=== PATIENT | male | born 1970 | race Caucasian/White ===

== ENCOUNTER 2018-11-13 13:41 | Emergency (ER) | payer MEDICAID ==
[~2018-11-13] VITALS: Ht 172.7 cm; Wt 65.8 kg
[~2018-11-13 13:41] MED LIST: FAMO40TA7 PO
[2018-11-13 13:44] VITALS: BP_SYST 110
== END 2018-11-13 15:36 | disposition left against medical advice (07) ==
LOC: SED 13:41
DX: L08.9 Local infection of the skin and subcutaneous tissue, unspecified (principal); Z53.21 Procedure and treatment not carried out due to patient leaving prior to being seen by health care provider

== ENCOUNTER 2018-11-25 18:39 | Emergency (ER) | payer MEDICAID ==
[~2018-11-25] VITALS: Ht 170.2 cm; Wt 86.2 kg
[2018-11-25 18:44] VITALS: BP_SYST 117
--- NOTE | 2018-11-25 18:46 | NUR ---
Patient to ER bed 05 to gown for evaluation. Side rails up.
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
[2018-11-25] MEDS ORDERED: ONDANSETRON HCL 4 MG/2 ML VIAL IVP ONE (19:15)
[2018-11-25] MEDS ORDERED: NACL 0.9% 1,000 ML IV ONE (19:15)
--- NOTE | 2018-11-25 19:35 | NUR ---
# 20 gauge angiocath placed to RAC. Use of asceptic technique. Opsite placed over site. Blood return noted. Blood for lab drawn from site. Flushed with 10 cc of normal saline. No evidence of infiltration noted. Patient tolerated well.
--- NOTE | 2018-11-25 19:37 | NUR ---
Shorty barker in ED - 11/25/18 at 1937 by SDEDCJM ANCELMO Weber at bedside examining patient.
--- NOTE | 2018-11-25 19:37 | NUR ---
ER Dr. Weber at bedside examining patient.
[2018-11-25 19:53] LABS: BASOPHILS % (AUTO) 0.7 % (0.0-2.0); EOSINOPHILS % (AUTO) 0.6 % (0.0-4.0); HEMATOCRIT 32.2 % (36-54); HEMOGLOBIN 10.8 g/dL (14.0-18.0); LYMPHOCYTES # (AUTO) 1.6 K/uL (1.0-5.5); LYMPHOCYTES % (AUTO) 27.9 % (20.5-51.5); MEAN CORPUSCULAR HEMOGLOBIN 32 pg (27-31); MEAN CORPUSCULAR HGB CONC 34 % (32-36); MEAN CORPUSCULAR VOLUME 95 fL (79.0-98.0); MONOCYTES # (AUTO) 0.5 K/uL (0.0-1.0); MONOCYTES % (AUTO) 9.5 % (1.7-9.3); NEUTROPHILS # (AUTO) 3.5 K/uL (1.8-7.7); NEUTROPHILS % (AUTO) 61.3 % (40.0-70.0); PLATELET COUNT (AUTO) 60 K/uL (130-430); RED BLOOD CELL COUNT(AUTO) 3.41 MIL/uL (4.2-6.2); RED CELL DISTRIBUTION WIDTH 23.2 % (9.0-15.0); WHITE BLOOD COUNT (AUTO) 5.7 K/uL (4.8-10.8)
[2018-11-25] MEDS ORDERED: DIPHENHYDRAMINE INJ 50 MG/ML VIAL IVP ONE (20:00)
[2018-11-25] MEDS ORDERED: MORPHINE 4 MG/ML INJ. SYRINGE IVP ONE (20:00)
[2018-11-25] MEDS ORDERED: PANTOPRAZOLE SODIUM 40 MG/VIAL (PROTONIX) IVP ONE (20:00)
[2018-11-25 20:01] LABS: CALCIUM 8.3 mg/dL (8.4-11.0); CREATININE 0.72 mg/dL (0.55-1.30); POTASSIUM 3.4 mmol/L (3.5-5.1)
[2018-11-25 20:05] LABS: ALBUMIN 3.2 g/dL (3.4-4.8); TOTAL BILIRUBIN 0.3 mg/dL (0.0-1.0)
--- NOTE | 2018-11-25 20:34 | NUR ---
Patient off unit to CT SCAN abdomen/pelvis with contrast.
--- NOTE | 2018-11-25 21:00 | NUR ---
Patient resting in bed. No complaints/injuries per patient or as noted. WIll continue to monitor.
[2018-11-25] MEDS ORDERED: PROCHLORPERAZINE EDISYLATE 10 MG/2 ML VIAL IVP ONE (21:15)
[2018-11-25] MEDS ORDERED: IOHEXOL 100 ML IV ONE (21:35)
--- NOTE | 2018-11-25 22:53 | NUR ---
ER Dr. Weber at bedside re-examining patient.
[2018-11-25 23:46] VITALS: BP_SYST 122
--- NOTE | 2018-11-25 23:46 | NUR ---
Patient given written and verbal discharge instructions and verbalizes understanding. ER MD discussed with patient the results and treatment provided. Patient in stable condition. ID arm band removed. IV catheter removed intact and dressing applied, no active bleeding. Rx of chlordiazepoxide, tramadol and protonix given. Patient educated on pain management and to follow up with PMD in 2-3 days. Pain Scale 0/10 Given copies of tests performed during visit. Patient is awake, alert and oriented. Ambulatory with steady gait. Refuses offer of prison placement. Given list of available shelters in surrounding areas. Patient presented to facility under the influence of alcohol. Patient is currently ambulatory with steady gait, able to walk unassisted. Positive gag reflex. Alert and oriented. Is not driving self for discharge out of facility.
== END 2018-11-25 23:46 | disposition home or self-care (01) ==
LOC: SED 18:39
DX: K85.90 Acute pancreatitis without necrosis or infection, unspecified (principal); G89.29 Other chronic pain; M79.672 Pain in left foot
CPT/HCPCS: 36415; 74177; 80053; 83690; 85025; 96361; 96374; 96375; 99284; C9113; G0482; J1200; J2270; J2405; J7030; Q9967

== ENCOUNTER 2020-03-26 14:30 | Emergency (ER) | payer MEDICAID, SELFPAY | END 2020-03-26 16:27 | disposition left against medical advice (07) | LOC: SED 14:30 | DX: M54.5 Low back pain (principal) | CPT/HCPCS: 99283 ==

== ENCOUNTER 2020-06-04 10:04 | Emergency (ER) | payer MEDICAID, SELFPAY ==
[~2020-06-04] VITALS: Ht 180.3 cm; Wt 71.7 kg
[2020-06-04 10:15] VITALS: BP_SYST 118
[2020-06-04] MEDS ORDERED: IBUPROFEN 600 MG TABLET PO ONE (10:30)
[2020-06-04 15:51] VITALS: BP_SYST 118
== END 2020-06-04 15:40 | disposition home or self-care (01) ==
LOC: SED 10:04
DX: G89.29 Other chronic pain (principal); M54.5 Low back pain; M79.662 Pain in left lower leg; F10.129 Alcohol abuse with intoxication, unspecified
CPT/HCPCS: 72110; 73590-TC; 93005; 99284

== ENCOUNTER 2020-09-02 13:06 | Inpatient (IN) | payer MEDICAID, SELFPAY ==
[~2020-09-02] VITALS: Ht 170.2 cm; Wt 73.5 kg
[2020-09-02 13:06] VITALS: BP_SYST 114
[2020-09-02] MEDS ORDERED: ACETAMINOPHEN 500 MG TABLET PO ONE (13:15)
[2020-09-02 13:28] LABS: BASOPHILS # (AUTO) 0.1 K/uL (0.0-0.2); BASOPHILS % (AUTO) 2.2 % (0.0-2.0); EOSINOPHILS # (AUTO) 0.1 K/uL (0.0-0.4); EOSINOPHILS % (AUTO) 1.2 % (0.0-4.0); HEMOGLOBIN 10.8 g/dL (14.0-18.0); LYMPHOCYTES # (AUTO) 2.1 K/uL (1.0-5.5); LYMPHOCYTES % (AUTO) 33.7 % (20.5-51.5); MEAN CORPUSCULAR HEMOGLOBIN 34 pg (27-31); MEAN CORPUSCULAR HGB CONC 34 % (32-36); MEAN CORPUSCULAR VOLUME 99 fL (79.0-98.0); MONOCYTES # (AUTO) 0.8 K/uL (0.0-1.0); MONOCYTES % (AUTO) 13.3 % (1.7-9.3); NEUTROPHILS # (AUTO) 3.2 K/uL (1.8-7.7); NEUTROPHILS % (AUTO) 49.6 % (40.0-70.0); PLATELET COUNT (AUTO) 131 K/uL (130-430); RED BLOOD CELL COUNT(AUTO) 3.22 MIL/uL (4.2-6.2); RED CELL DISTRIBUTION WIDTH 13.9 % (9.0-15.0); WHITE BLOOD COUNT (AUTO) 6.4 K/uL (4.8-10.8)
[2020-09-02 13:41] LABS: CALCIUM 7.3 mg/dL (8.4-11.0); CREATININE 0.55 mg/dL (0.55-1.30); POTASSIUM 3.9 mmol/L (3.5-5.1)
[2020-09-02 13:46] LABS: ALBUMIN 2.6 g/dL (3.4-4.8); TOTAL BILIRUBIN 0.4 mg/dL (0.0-1.0)
[2020-09-02 14:15] LABS: BILIRUBIN,URINE NEGATIVE (NEGATIVE); BLOOD, URINE NEGATIVE (NEGATIVE); CLARITY/URINE CLEAR (CLEAR); COLOR,URINE YELLOW (YELLOW); GLUCOSE,URINE NEGATIVE (NEGATIVE); KETONES,URINE NEGATIVE (NEGATIVE); LEUKOCYTE ESTERASE ,URINE NEGATIVE (NEGATIVE); NITRITE, URINE NEGATIVE (NEGATIVE); PROTEIN URINE NEGATIVE (NEGATIVE); UROBILINOGEN,URINE 0.2 (0.2-1.0)
[2020-09-02] MEDS ORDERED: ACETAMINOPHEN 325 MG TABLET PO PRN (17:30)
[2020-09-02] MEDS ORDERED: MORPHINE 2 MG/ML INJ. SYRINGE IVP PRN (17:30)
[2020-09-02] MEDS ORDERED: MORPHINE 4 MG INJ. 4 MG/ML VIAL IVP PRN (17:30)
[2020-09-02] MEDS ORDERED: ALBUTEROL SULFATE 0.083% 2.5 MG/3 ML VIAL.NEB INH PRN (17:30)
[2020-09-02 17:57] VITALS: BP_SYST 108
[2020-09-02 18:56] VITALS: BP_SYST 102
[2020-09-02 20:00] VITALS: BP_SYST 111
[2020-09-02] MEDS: NACL 0.9% 1,000 ML IV SCH (20:51)
[2020-09-02] MEDS: LORazepam 2 MG/ML VIAL IVP PRN (21:54)
[2020-09-02] MEDS ORDERED: BEN50 PO (22:40)
[2020-09-02] MEDS ORDERED: GLUC-119 PO (22:40)
[2020-09-02] MEDS ORDERED: ACET-2634 PO (22:40)
[2020-09-02] MEDS ORDERED: DOXE10CA2 PO (22:40)
[2020-09-02] MEDS ORDERED: FOLIC ACID 1 MG, THIAMINE HCL 100 MG, MAGNESIUM SULFATE 1 GM, MVI 10 ML in NACL 0.9% 1,... IV SCH (23:00)
[2020-09-02] MEDS ORDERED: MULTIVITAMINS TAB 1 TABLET PO ONE (23:15)
[2020-09-03] MEDS: NACL 0.9% 1,000 ML IV SCH ×2 (00:10→03:33)
[2020-09-03 00:24] VITALS: BP_SYST 123
[2020-09-03] MEDS: LORazepam 2 MG/ML VIAL IVP PRN (02:00)
[2020-09-03] MEDS ORDERED: DIPHENHYDRAMINE HCL 50 MG CAPSULE PO ONE (04:15)
[2020-09-03 06:34] LABS: BASOPHILS # (AUTO) 0.1 K/uL (0.0-0.2); BASOPHILS % (AUTO) 2.1 % (0.0-2.0); EOSINOPHILS # (AUTO) 0.1 K/uL (0.0-0.4); EOSINOPHILS % (AUTO) 1.2 % (0.0-4.0); HEMATOCRIT 32.6 % (36-54); HEMOGLOBIN 10.9 g/dL (14.0-18.0); LYMPHOCYTES # (AUTO) 1.2 K/uL (1.0-5.5); LYMPHOCYTES % (AUTO) 26.1 % (20.5-51.5); MEAN CORPUSCULAR HEMOGLOBIN 34 pg (27-31); MEAN CORPUSCULAR HGB CONC 33 % (32-36); MEAN CORPUSCULAR VOLUME 100 fL (79.0-98.0); MONOCYTES # (AUTO) 0.7 K/uL (0.0-1.0); MONOCYTES % (AUTO) 13.9 % (1.7-9.3); NEUTROPHILS # (AUTO) 2.7 K/uL (1.8-7.7); NEUTROPHILS % (AUTO) 56.7 % (40.0-70.0); PLATELET COUNT (AUTO) 123 K/uL (130-430); RED BLOOD CELL COUNT(AUTO) 3.26 MIL/uL (4.2-6.2); WHITE BLOOD COUNT (AUTO) 4.7 K/uL (4.8-10.8)
[2020-09-03 06:55] LABS: ALBUMIN 2.5 g/dL (3.4-4.8); CALCIUM 8.1 mg/dL (8.4-11.0); CREATININE 0.54 mg/dL (0.55-1.30); POTASSIUM 4.3 mmol/L (3.5-5.1); TOTAL BILIRUBIN 0.6 mg/dL (0.0-1.0)
[2020-09-03] MEDS ORDERED: FOLIC ACID 1 MG, THIAMINE HCL 100 MG, MAGNESIUM SULFATE 1 GM, MVI 10 ML in NACL 0.9% 1,... IV SCH (09:00)
== END 2020-09-03 06:05 | disposition left against medical advice (07) | DRG 282 ==
LOC: SED 13:06 → SMU 17:28
PROVIDERS: ADMIT Internal Medicine Hospice and Palliative Medicine; ATTEND Internal Medicine Hospice and Palliative Medicine
DX: K85.90 Acute pancreatitis without necrosis or infection, unspecified (principal); E46 Unspecified protein-calorie malnutrition; E83.51 Hypocalcemia; E87.1 Hypo-osmolality and hyponatremia; D64.9 Anemia, unspecified; K86.1 Other chronic pancreatitis; F10.229 Alcohol dependence with intoxication, unspecified; Z53.21 Procedure and treatment not carried out due to patient leaving prior to being seen by health care provider; Z20.822 Contact with and (suspected) exposure to COVID-19; G89.29 Other chronic pain; Z59.0 Homelessness; Z79.899 Other long term (current) drug therapy; Z68.25 Body mass index [BMI] 25.0-25.9, adult
CPT/HCPCS: 36415; 76376; 80053; 81003; 83690; 85025; 99285; G0482; J2060; J2270; J3411; J3475; J3490; J7030; Q0163

== ENCOUNTER 2021-02-26 20:34 | Emergency (ER) | payer MEDICAID, SELFPAY ==
[~2021-02-26] VITALS: Ht 170.2 cm; Wt 69.4 kg
[~2021-02-26 20:34] MED LIST changes: +ACET-2634 PO; +BEN50 PO; +DOXE10CA2 PO; +GLUC-119 PO
[2021-02-26 20:40] VITALS: BP_SYST 112
[2021-02-26] MEDS: HYDROcodone/ACETAMIN 5-325 MG TAB (NORCO/ VICODIN) PO ONE (21:11)
[2021-02-26 22:24] VITALS: BP_SYST 112
== END 2021-02-26 22:24 | disposition home or self-care (01) ==
LOC: SED 20:34
DX: G89.29 Other chronic pain (principal); M25.561 Pain in right knee; Z79.899 Other long term (current) drug therapy
CPT/HCPCS: 99283

== ENCOUNTER 2021-07-28 21:13 | Emergency (ER) | payer MEDICAID ==
[~2021-07-28] VITALS: Ht 170.2 cm; Wt 79.4 kg
[2021-07-28 21:21] VITALS: BP_SYST 112
--- NOTE | 2021-07-29 06:18 | NUR ---
ER in triage examining patient.
[2021-07-29] MEDS ORDERED: HYDR-3917 PO (06:24)
[2021-07-29] MEDS ORDERED: NAPR-688 PO (06:24)
--- NOTE | 2021-07-29 06:30 | NUR ---
Patient given written and verbal discharge instructions by Dr Williamson and verbalizes understanding. ER MD discussed with patient the care provided. Patient in stable condition. Rx of Adair 5/325 mg and Naproxen given. Patient educated on pain management and to follow up with PMD. Pain Scale 01/0. Opportunity for questions provided and answered by Dr Williamson.
== END 2021-07-29 06:30 | disposition home or self-care (01) ==
LOC: SED 21:13
DX: M79.18 Myalgia, other site (principal); G89.29 Other chronic pain; Z79.899 Other long term (current) drug therapy
CPT/HCPCS: 99283

== ENCOUNTER 2021-08-02 20:52 | Emergency (ER) | payer MEDICAID ==
[~2021-08-02] VITALS: Ht 170.2 cm; Wt 77.1 kg
[~2021-08-02 20:52] MED LIST changes: +HYDR-3917 PO; +NAPR-688 PO
[2021-08-02 21:18] VITALS: BP_SYST 103
--- NOTE | 2021-08-02 22:35 | NUR ---
Dr Dutton evaluating patient in the triage room
[2021-08-02] MEDS ORDERED: KETOROLAC TROMETHAMINE 60 MG/2 ML VIAL IM ONE (22:45)
--- NOTE | 2021-08-02 22:52 | NUR ---
Pt brought by self, A&Ox4, pt presents to ER with bilateral / foot pain, pt denies chest pain or SOB, skin pink and warm, respirations even and unlabored, will cont to monitor.
[2021-08-02] MEDS ORDERED: NAPR-1172 PO (23:51)
[2021-08-03 00:30] VITALS: BP_SYST 109
--- NOTE | 2021-08-03 00:30 | NUR ---
Patient given written and verbal discharge instructions and verbalizes understanding. ER MD discussed with patient the results and treatment provided. Patient in stable condition. ID arm band removed. Rx of Naproxen given. Patient educated on pain management and to follow up with PMD. Pain Scale 4/10. Opportunity for questions provided and answered. Medication side effect fact sheet provided.
== END 2021-08-03 00:30 | disposition home or self-care (01) ==
LOC: SED 20:52
DX: G89.29 Other chronic pain (principal); M79.661 Pain in right lower leg; M79.662 Pain in left lower leg
CPT/HCPCS: 96372; 99283; J1885

== ENCOUNTER 2021-08-18 23:11 | Emergency (ER) | payer MEDICAID ==
[~2021-08-18] VITALS: Ht 170.2 cm; Wt 77.1 kg
[~2021-08-18 23:11] MED LIST changes: +NAPR-1172 PO
[2021-08-18 23:18] VITALS: BP_SYST 122
[2021-08-19] MEDS ORDERED: DIPHENHYDRAMINE HCL 50 MG CAPSULE PO ONE (01:15)
[2021-08-19] MEDS ORDERED: ACETAMINOPHEN 650 MG/20.3 ML UDC PO ONE (01:15)
[2021-08-19] MEDS ORDERED: DIPH28.34 TP (02:39)
[2021-08-19] MEDS ORDERED: ACET-73 PO (02:39)
[2021-08-19 05:28] VITALS: BP_SYST 118
== END 2021-08-19 05:29 | disposition home or self-care (01) ==
LOC: SED 23:11
DX: G89.29 Other chronic pain (principal); R21 Rash and other nonspecific skin eruption
CPT/HCPCS: 99283; Q0163

== ENCOUNTER 2022-05-05 20:41 | Emergency (ER) | payer MEDICAID ==
[~2022-05-05] VITALS: Ht 170.2 cm; Wt 77.1 kg
[~2022-05-05 20:41] MED LIST changes: +ACET-73 PO; +DIPH28.34 TP
[2022-05-05 21:27] VITALS: BP_SYST 106
[2022-05-05 22:14] LABS: BASOPHILS # (AUTO) 0.1 K/uL (0.0-0.2); BASOPHILS % (AUTO) 2.2 % (0.0-2.0); EOSINOPHILS % (AUTO) 0.7 % (0.0-4.0); HEMATOCRIT 31.2 % (36-54); HEMOGLOBIN 10.5 g/dL (14.0-18.0); LYMPHOCYTES # (AUTO) 1.2 K/uL (1.0-5.5); LYMPHOCYTES % (AUTO) 27.2 % (20.5-51.5); MEAN CORPUSCULAR HEMOGLOBIN 31 pg (27-31); MEAN CORPUSCULAR HGB CONC 34 % (32-36); MEAN CORPUSCULAR VOLUME 93 fL (79.0-98.0); MONOCYTES # (AUTO) 0.4 K/uL (0.0-1.0); MONOCYTES % (AUTO) 9.8 % (1.7-9.3); NEUTROPHILS # (AUTO) 2.7 K/uL (1.8-7.7); NEUTROPHILS % (AUTO) 60.1 % (40.0-70.0); PLATELET COUNT (AUTO) 109 K/uL (130-430); RED BLOOD CELL COUNT(AUTO) 3.37 MIL/uL (4.2-6.2); RED CELL DISTRIBUTION WIDTH 17.7 % (9.0-15.0); WHITE BLOOD COUNT (AUTO) 4.6 K/uL (4.8-10.8)
[2022-05-05 22:21] LABS: ACETONE, SERUM NEGATIVE (NEGATIVE)
[2022-05-05 22:25] LABS: ANION GAP 7 (5-15); CALCIUM 7.8 mg/dL (8.4-11.0); CHLORIDE 97 mmol/L (98-107); CREATININE 0.52 mg/dL (0.55-1.30); GLUCOSE 107 mg/dL (70-99); UREA NITROGEN, BLOOD 4 mg/dL (8-21)
[2022-05-05 22:29] LABS: ALANINE AMINOTRANSFERASE 19 U/L (12-78); ALBUMIN 2.4 g/dL (3.4-4.8); ALCOHOL, BLOOD 207 mg/dL (<10); AMYLASE 35 U/L (0-100); ASPARTATE AMINOTRANSFERASE 42 U/L (10-37); C-REACTIVE PROTEIN QUANT 1.3 mg/dL (0-0.5); LIPASE 167 U/L (73-393); TOTAL BILIRUBIN 0.5 mg/dL (0.0-1.0)
--- NOTE | 2022-05-05 23:00 | NUR ---
ER at bedside examining patient.
[2022-05-05] MEDS ORDERED: TRAM50TA2 PO (23:15)
[2022-05-05 23:24] VITALS: BP_SYST 138
--- NOTE | 2022-05-05 23:26 | NUR ---
PT IS AA&OX4. AFEBRILE. NAD. DENIES PAIN AT THE MOMENT. AMBULATORY USES A FWW W/ STEADY GAIT. B & B CONTINENT.
--- NOTE | 2022-05-05 23:27 | NUR ---
Patient given written and verbal discharge instructions and verbalizes understanding. ER MD discussed with patient the results and treatment provided. Patient in stable condition. ID arm band removed. Rx of TRAMADOL given. Patient educated on pain management and to follow up with PMD. Pain Scale 0/10. Opportunity for questions provided and answered. Medication side effect fact sheet provided.
--- NOTE | 2022-05-05 23:45 | NUR ---
Spoke with housesupervisor regarding patient's desire to wait in the waiting room area and be uber to [facility] and then to sister's house at 5:30am. Pt does not specify why he cannot be discharged now to a family member's home. supervisor tile and mottle states to report patient's desire to dayshift er charge nurse.
== END 2022-05-05 23:24 | disposition home or self-care (01) ==
LOC: SED 20:41
DX: K29.20 Alcoholic gastritis without bleeding (principal); F10.129 Alcohol abuse with intoxication, unspecified; K74.60 Unspecified cirrhosis of liver; R10.9 Unspecified abdominal pain; M79.10 Myalgia, unspecified site; Z79.899 Other long term (current) drug therapy; Y90.6 Blood alcohol level of 120-199 mg/100 ml
CPT/HCPCS: 99284; 74176; 80053; 82009; 82150; 83690; 85025; 86140; 36415; 76376; 83605; G0482

== ENCOUNTER 2022-06-25 21:55 | Emergency (ER) | payer MEDICAID ==
[~2022-06-25] VITALS: Ht 170.2 cm; Wt 77.1 kg
[~2022-06-25 21:55] MED LIST changes: +TRAM50TA2 PO
[2022-06-25 22:01] VITALS: BP_SYST 119
[2022-06-25] MEDS ORDERED: NACL 0.9% 1,000 ML IV ONE ×2 (22:15→23:30)
[2022-06-25 22:40] LABS: BASOPHILS % (AUTO) 0.2 % (0.0-2.0); EOSINOPHILS # (AUTO) 0.1 K/uL (0.0-0.4); EOSINOPHILS % (AUTO) 2.7 % (0.0-4.0); HEMATOCRIT 32.4 % (36-54); HEMOGLOBIN 10.8 g/dL (14.0-18.0); LYMPHOCYTES # (AUTO) 1.9 K/uL (1.0-5.5); LYMPHOCYTES % (AUTO) 45.2 % (20.5-51.5); MEAN CORPUSCULAR HEMOGLOBIN 32 pg (27-31); MEAN CORPUSCULAR HGB CONC 34 % (32-36); MEAN CORPUSCULAR VOLUME 96 fL (79.0-98.0); MONOCYTES # (AUTO) 0.5 K/uL (0.0-1.0); MONOCYTES % (AUTO) 11.1 % (1.7-9.3); NEUTROPHILS # (AUTO) 1.7 K/uL (1.8-7.7); NEUTROPHILS % (AUTO) 40.8 % (40.0-70.0); PLATELET COUNT (AUTO) 141 K/uL (130-430); RED BLOOD CELL COUNT(AUTO) 3.38 MIL/uL (4.2-6.2); RED CELL DISTRIBUTION WIDTH 17.4 % (9.0-15.0); WHITE BLOOD COUNT (AUTO) 4.2 K/uL (4.8-10.8)
--- NOTE | 2022-06-25 22:51 | NUR ---
PT WENT TO BED 4
--- NOTE | 2022-06-25 22:51 | NUR ---
PT IS HERE BECAUSE HAS EPIGASTIC PAIN FOR A MONTH THAT IS WORSENING PAIN TODAY. PT WAS F[facility]. HX OF PANCREATITIS AND CIRROISIS
[2022-06-25] MEDS ORDERED: PANTOPRAZOLE SODIUM 40 MG/VIAL (PROTONIX) IVP ONE (23:30)
--- NOTE | 2022-06-25 23:37 | NUR ---
PT IS ASKING FOR URINAL
[2022-06-26 00:47] LABS: BILIRUBIN,URINE NEGATIVE (NEGATIVE); BLOOD, URINE NEGATIVE (NEGATIVE); CLARITY/URINE CLEAR (CLEAR); COLOR,URINE YELLOW (YELLOW); GLUCOSE,URINE NEGATIVE (NEGATIVE); KETONES,URINE NEGATIVE (NEGATIVE); LEUKOCYTE ESTERASE ,URINE NEGATIVE (NEGATIVE); NITRITE, URINE NEGATIVE (NEGATIVE); PROTEIN URINE NEGATIVE (NEGATIVE); UROBILINOGEN,URINE 0.2 (0.2-1.0)
[2022-06-26 01:34] LABS: CALCIUM 7.4 mg/dL (8.4-11.0); CREATININE 0.62 mg/dL (0.55-1.30)
[2022-06-26 01:40] LABS: ALBUMIN 2.3 g/dL (3.4-4.8); TOTAL BILIRUBIN 0.5 mg/dL (0.0-1.0)
[2022-06-26] MEDS ORDERED: PRO40 PO (02:02)
[2022-06-26] MEDS ORDERED: [UNRECOGNIZED DRUG - CODE] TP (02:04)
[2022-06-26 02:24] VITALS: BP_SYST 119
--- NOTE | 2022-06-26 02:24 | NUR ---
Patient given written and verbal discharge instructions and verbalizes understanding. ER MD discussed with patient the results and treatment provided. Patient in stable condition. ID arm band removed. IV catheter removed intact and dressing applied, no active bleeding. Rx of ANTIBIOTIC given. Patient educated on pain management and to follow up with PMD. Pain Scale 0/10. Opportunity for questions provided and answered. Medication side effect fact sheet provided.
[2022-07-01] MEDS ORDERED: LORA-259 PO (19:15)
== END 2022-06-26 02:24 | disposition home or self-care (01) ==
LOC: SED 21:55
DX: K29.20 Alcoholic gastritis without bleeding (principal); R10.13 Epigastric pain; Z79.899 Other long term (current) drug therapy
CPT/HCPCS: 99285; 74176; 96361 ×2; 80053; 83690; 85025; 36415; 76376; 81003; 96374; G0482; J7030 ×2; C9113

== ENCOUNTER 2022-07-18 20:03 | Emergency (ER) | payer MEDICAID ==
[~2022-07-18] VITALS: Ht 170.2 cm; Wt 76.2 kg
[~2022-07-18 20:03] MED LIST changes: +LORA-259 PO; +PRO40 PO; +[UNRECOGNIZED DRUG - CODE] TP
[2022-07-18 20:10] VITALS: BP_SYST 118
--- NOTE | 2022-07-18 20:30 | NUR ---
Patient to ER bed 7 to gown for evaluation. Side rails up. Report given to GARY HERNANDEZ.
--- NOTE | 2022-07-18 20:31 | NUR ---
ER at bedside examining patient.
--- NOTE | 2022-07-18 20:40 | NUR ---
PT BIB AMBULANCE BLS FROM [facility], TAKEN TO BED [address] [facility]. PT ALERT AND ORIENTED, ABLE TO MAKE NEEDS KNOWN. PT C/O ABD PAIN x2 DAYS. PT RATES PAIN 9/10 AND DESCRIBES PAIN SHARP. PT STATES HE VOMITED ONCE TODAY. PT DENIES DIARRHEA, SOB AND CHEST PAIN. PT DENIES FEVER AND CHILLS. PT STATES HE DRANK 2 BEERS IN THE MORNING. SAFETY PRECAUTIONS IN PLACE.
[2022-07-18] MEDS ORDERED: NACL 0.9% 1,000 ML IV ONE (21:00)
[2022-07-18] MEDS ORDERED: PANTOPRAZOLE SODIUM 40 MG/VIAL (PROTONIX) IVP ONE (21:00)
[2022-07-18 21:41] LABS: BASOPHILS # (AUTO) 0.2 K/uL (0.0-0.2); EOSINOPHILS # (AUTO) 0.2 K/uL (0.0-0.4); LYMPHOCYTES # (AUTO) 1.9 K/uL (1.0-5.5); NEUTROPHILS # (AUTO) 1.9 K/uL (1.8-7.7); RED BLOOD CELL COUNT(AUTO) 3.43 MIL/uL (4.2-6.2); WHITE BLOOD COUNT (AUTO) 4.6 K/uL (4.8-10.8)
--- NOTE | 2022-07-18 21:43 | NUR ---
PT OPENED A CAN OF BEER AT BEDSIDE, SKILLED NURSE TOOK BEER AWAY AND MADE DR DAVIDSON AWARE.
[2022-07-18 21:49] LABS: CALCIUM 7.5 mg/dL (8.4-11.0); CREATININE 0.75 mg/dL (0.55-1.30)
[2022-07-18 21:55] LABS: ALBUMIN 2.3 g/dL (3.4-4.8); TOTAL BILIRUBIN 0.5 mg/dL (0.0-1.0)
[2022-07-18 21:56] LABS: BASOPHILS % (AUTO) 3.7 % (0.0-2.0); EOSINOPHILS % (AUTO) 4.2 % (0.0-4.0); HEMATOCRIT 32.6 % (36-54); LYMPHOCYTES % (AUTO) 41.7 % (20.5-51.5); MEAN CORPUSCULAR HEMOGLOBIN 32 pg (27-31); MEAN CORPUSCULAR HGB CONC 34 % (32-36); MEAN CORPUSCULAR VOLUME 95 fL (79.0-98.0); MONOCYTES # (AUTO) 0.4 K/uL (0.0-1.0); MONOCYTES % (AUTO) 9.1 % (1.7-9.3); NEUTROPHILS % (AUTO) 41.3 % (40.0-70.0); RED CELL DISTRIBUTION WIDTH 16.4 % (9.0-15.0)
[2022-07-18 22:46] LABS: PLATELET COUNT (AUTO) 96 K/uL (130-430)
--- NOTE | 2022-07-19 00:12 | NUR ---
Patient given written and verbal discharge instructions and verbalizes understanding. ER DR DAVIDSON discussed with patient the results and treatment provided. Patient in stable condition. ID arm band removed. IV catheter removed intact and dressing applied, no active bleeding. Patient educated on pain management and to follow up with PMD. Pain Scale 0/10 Opportunity for questions provided and answered. Medication side effect fact sheet provided.
[2022-07-19 00:13] VITALS: BP_SYST 107
== END 2022-07-19 00:13 | disposition home or self-care (01) ==
LOC: SED 20:03
DX: K29.20 Alcoholic gastritis without bleeding (principal); F10.129 Alcohol abuse with intoxication, unspecified; R10.84 Generalized abdominal pain; Z79.899 Other long term (current) drug therapy; Y90.6 Blood alcohol level of 120-199 mg/100 ml
CPT/HCPCS: 99283; 96374; 96361; 80053; 83690; 85025; 36415; C9113; J7030

== ENCOUNTER 2022-07-22 15:56 | Inpatient (IN) | payer MEDICAID ==
[~2022-07-22] VITALS: Ht 170.2 cm; Wt 64.0 kg
[2022-07-22 16:03] VITALS: BP_SYST 90
[2022-07-22] MEDS ORDERED: THIAMINE HCL 100 MG in NS 50 ML IV ONE (16:15)
[2022-07-22] MEDS ORDERED: NACL 0.9% 2,000 ML IV ONE (16:15)
[2022-07-22] MEDS ORDERED: ONDANSETRON HCL 4 MG/2 ML VIAL IVP ONE (16:15)
[2022-07-22] MEDS ORDERED: PANTOPRAZOLE SODIUM 40 MG/VIAL (PROTONIX) IVP ONE (16:15)
[2022-07-22 17:03] LABS: BASOPHILS % (AUTO) 0.6 % (0.0-2.0); HEMATOCRIT 30.3 % (36-54); HEMOGLOBIN 10.3 g/dL (14.0-18.0); LYMPHOCYTES # (AUTO) 0.5 K/uL (1.0-5.5); LYMPHOCYTES % (AUTO) 15.3 % (20.5-51.5); MEAN CORPUSCULAR HEMOGLOBIN 32 pg (27-31); MEAN CORPUSCULAR HGB CONC 34 % (32-36); MEAN CORPUSCULAR VOLUME 94 fL (79.0-98.0); MONOCYTES # (AUTO) 0.2 K/uL (0.0-1.0); NEUTROPHILS # (AUTO) 2.4 K/uL (1.8-7.7); NEUTROPHILS % (AUTO) 78.1 % (40.0-70.0); RED BLOOD CELL COUNT(AUTO) 3.23 MIL/uL (4.2-6.2); WHITE BLOOD COUNT (AUTO) 3.1 K/uL (4.8-10.8)
[2022-07-22 17:11] LABS: CREATININE 0.93 mg/dL (0.55-1.30)
[2022-07-22] MEDS ORDERED: THIAMINE HCL 100 MG/ML VIAL ONE (17:11)
[2022-07-22 17:17] LABS: TOTAL BILIRUBIN 0.8 mg/dL (0.0-1.0)
[2022-07-22 17:20] LABS: PLATELET COUNT (AUTO) 80 K/uL (130-430)
[2022-07-22] MEDS ORDERED: LACTULOSE 20 GM/30 ML UDC PO ONE (20:45)
[2022-07-22] MEDS ORDERED: ALBUMIN HUMAN 25% 100 ML IV ONE (22:00)
[2022-07-22] MEDS ORDERED: CALCIUM GLUCONATE 1 GM in NS 100 ML IV ONE (22:00)
[2022-07-22] MEDS ORDERED: MUPIROCIN 2% TOPICAL OINTMENT 22 GM NS PRN (22:30)
[2022-07-22] MEDS ORDERED: DOCUSATE SODIUM 100 MG CAPSULE PO PRN (22:30)
[2022-07-22] MEDS ORDERED: ONDANSETRON HCL 4 MG/2 ML VIAL IVP PRN (22:30)
[2022-07-22] MEDS ORDERED: MORPHINE 2 MG/ML INJ. SYRINGE IVP PRN ×2 (22:30)
[2022-07-22] MEDS ORDERED: MAGNESIUM SULFATE 50 ML IV PRN (22:30)
[2022-07-22] MEDS ORDERED: ALBUTEROL SULFATE 0.083% 2.5 MG/3 ML VIAL.NEB INH PRN (22:30)
[2022-07-22] MEDS ORDERED: ACETAMINOPHEN 325 MG TABLET PO PRN (22:30)
[2022-07-22] MEDS ORDERED: POTASSIUM CHLORIDE 20 MEQ TAB.PRT.SR PO PRN (22:30)
[2022-07-23 00:24] VITALS: BP_SYST 111
[2022-07-23] MEDS ORDERED: CALCIUM GLUCONATE 1 GM/10 ML VIAL ONE (00:48)
[2022-07-23 04:34] VITALS: BP_SYST 111
[2022-07-23 08:10] VITALS: BP_SYST 113
[2022-07-23] MEDS: LACTULOSE 20 GM/30 ML UDC PO SCH ×2 (08:55→22:21)
[2022-07-23] MEDS: NEPHROVITE, (FOLIC ACID/VITAMIN B COMP W-C 1 TAB) PO SCH (08:55)
[2022-07-23] MEDS: LORazepam 2 MG/ML VIAL IVP PRN ×3 (08:59→21:53)
[2022-07-23 09:34] LABS: CALCIUM 7.6 mg/dL (8.4-11.0); CREATININE 0.77 mg/dL (0.55-1.30)
[2022-07-23 09:45] LABS: BASOPHILS # (AUTO) 0.1 K/uL (0.0-0.2); BASOPHILS % (AUTO) 3.5 % (0.0-2.0); EOSINOPHILS # (AUTO) 0.1 K/uL (0.0-0.4); EOSINOPHILS % (AUTO) 2.4 % (0.0-4.0); HEMATOCRIT 29.3 % (36-54); HEMOGLOBIN 9.9 g/dL (14.0-18.0); LYMPHOCYTES # (AUTO) 1.1 K/uL (1.0-5.5); LYMPHOCYTES % (AUTO) 32.2 % (20.5-51.5); MEAN CORPUSCULAR HEMOGLOBIN 32 pg (27-31); MEAN CORPUSCULAR HGB CONC 34 % (32-36); MEAN CORPUSCULAR VOLUME 94 fL (79.0-98.0); MONOCYTES # (AUTO) 0.3 K/uL (0.0-1.0); MONOCYTES % (AUTO) 9.2 % (1.7-9.3); NEUTROPHILS # (AUTO) 1.8 K/uL (1.8-7.7); NEUTROPHILS % (AUTO) 52.7 % (40.0-70.0); PLATELET COUNT (AUTO) 61 K/uL (130-430); RED BLOOD CELL COUNT(AUTO) 3.14 MIL/uL (4.2-6.2); RED CELL DISTRIBUTION WIDTH 16.2 % (9.0-15.0); WHITE BLOOD COUNT (AUTO) 3.4 K/uL (4.8-10.8)
[2022-07-23] MEDS: PANTOPRAZOLE SODIUM 40 MG/VIAL (PROTONIX) IVP SCH (10:56)
[2022-07-23 11:46] VITALS: BP_SYST 103
[2022-07-23 16:58] VITALS: BP_SYST 123
[2022-07-23] MEDS: chlordiazePOXIDE HCL 10 MG CAPSULE PO PRN (20:09)
[2022-07-24 00:52] VITALS: BP_SYST 127
[2022-07-24] MEDS: chlordiazePOXIDE HCL 10 MG CAPSULE PO PRN (04:06)
[2022-07-24 05:57] LABS: CALCIUM 7.3 mg/dL (8.4-11.0); CREATININE 0.93 mg/dL (0.55-1.30)
[2022-07-24 07:30] VITALS: BP_SYST 113
[2022-07-24 07:34] LABS: BASOPHILS % (AUTO) 1.4 % (0.0-2.0); EOSINOPHILS # (AUTO) 0.1 K/uL (0.0-0.4); EOSINOPHILS % (AUTO) 3.6 % (0.0-4.0); HEMATOCRIT 30.3 % (36-54); LYMPHOCYTES # (AUTO) 0.7 K/uL (1.0-5.5); LYMPHOCYTES % (AUTO) 30.4 % (20.5-51.5); MEAN CORPUSCULAR HEMOGLOBIN 31 pg (27-31); MEAN CORPUSCULAR HGB CONC 33 % (32-36); MEAN CORPUSCULAR VOLUME 95 fL (79.0-98.0); MONOCYTES # (AUTO) 0.2 K/uL (0.0-1.0); NEUTROPHILS # (AUTO) 1.3 K/uL (1.8-7.7); NEUTROPHILS % (AUTO) 54.6 % (40.0-70.0); RED BLOOD CELL COUNT(AUTO) 3.18 MIL/uL (4.2-6.2); RED CELL DISTRIBUTION WIDTH 16.2 % (9.0-15.0); WHITE BLOOD COUNT (AUTO) 2.4 K/uL (4.8-10.8)
[2022-07-24 07:52] LABS: PLATELET COUNT (AUTO) 45 K/uL (130-430)
[2022-07-24] MEDS: PANTOPRAZOLE SODIUM 40 MG/VIAL (PROTONIX) IVP SCH (09:00)
[2022-07-24] MEDS: NEPHROVITE, (FOLIC ACID/VITAMIN B COMP W-C 1 TAB) PO SCH (10:29)
[2022-07-24] MEDS: LACTULOSE 20 GM/30 ML UDC PO SCH (10:29)
[2022-07-24] MEDS ORDERED: NEPH PO (11:17)
[2022-07-24] MEDS ORDERED: LIB25 PO (11:17)
[2022-07-24] MEDS ORDERED: Lactulose PO (11:21)
[2022-07-24 11:24] VITALS: BP_SYST 110
[2022-07-24 14:14] VITALS: BP_SYST 110
== END 2022-07-24 14:08 | disposition home or self-care (01) | DRG 816 ==
LOC: SED 15:56 → STU 22:27
PROVIDERS: ADMIT Family Medicine; ATTEND Family Medicine
DX: T51.91XA Toxic effect of unspecified alcohol, accidental (unintentional), initial encounter (principal); G92.8 Other toxic encephalopathy; E43 Unspecified severe protein-calorie malnutrition; D61.818 Other pancytopenia; K76.82 Hepatic encephalopathy; E87.1 Hypo-osmolality and hyponatremia; F10.139 Alcohol abuse with withdrawal, unspecified; E87.6 Hypokalemia; Z20.822 Contact with and (suspected) exposure to COVID-19; R74.01 Elevation of levels of liver transaminase levels; Z79.1 Long term (current) use of non-steroidal anti-inflammatories (NSAID); Z79.899 Other long term (current) drug therapy; Y92.89 Other specified places as the place of occurrence of the external cause; Z91.14 Patient's other noncompliance with medication regimen; Z68.22 Body mass index [BMI] 22.0-22.9, adult; Y90.8 Blood alcohol level of 240 mg/100 ml or more
CPT/HCPCS: 36415; 80048; 80053; 82140; 83690; 83735; 85025; 93005; 94760; 99285; C9113; G0378; G0482; J0610; J2060; J2405; J3411; P9046

== ENCOUNTER 2022-07-28 18:29 | Emergency (ER) | payer MEDICAID ==
[~2022-07-28] VITALS: Ht 167.6 cm; Wt 68.0 kg
[~2022-07-28 18:29] MED LIST changes: -ACET-73 PO; -DIPH28.34 TP; +LIB25 PO; +Lactulose PO; -NAPR-1172 PO; -NAPR-688 PO; +NEPH PO
[2022-07-28 18:30] VITALS: BP_SYST 150
[2022-07-28 19:16] VITALS: BP_SYST 150
== END 2022-07-28 19:04 | disposition left against medical advice (07) ==
LOC: SED 18:29
DX: F10.20 Alcohol dependence, uncomplicated (principal); R10.9 Unspecified abdominal pain; Z79.899 Other long term (current) drug therapy; Y90.6 Blood alcohol level of 120-199 mg/100 ml
CPT/HCPCS: 99283

== ENCOUNTER 2022-07-29 21:36 | Emergency (ER) | payer MEDICAID ==
[~2022-07-29] VITALS: Ht 165.1 cm; Wt 63.5 kg
[2022-07-29 21:46] VITALS: BP_SYST 175
[2022-07-30 03:11] LABS: CALCIUM 7.3 mg/dL (8.4-11.0); CREATININE 0.7 mg/dL (0.55-1.30)
[2022-07-30 03:15] LABS: ALBUMIN 2.2 g/dL (3.4-4.8); TOTAL BILIRUBIN 1.3 mg/dL (0.0-1.0)
[2022-07-30 03:22] LABS: BASOPHILS # (AUTO) 0.1 K/uL (0.0-0.2); BASOPHILS % (AUTO) 3.3 % (0.0-2.0); EOSINOPHILS # (AUTO) 0.2 K/uL (0.0-0.4); EOSINOPHILS % (AUTO) 4.5 % (0.0-4.0); HEMATOCRIT 30.6 % (36-54); HEMOGLOBIN 10.2 g/dL (14.0-18.0); LYMPHOCYTES # (AUTO) 2.1 K/uL (1.0-5.5); MEAN CORPUSCULAR HEMOGLOBIN 32 pg (27-31); MEAN CORPUSCULAR HGB CONC 33 % (32-36); MEAN CORPUSCULAR VOLUME 95 fL (79.0-98.0); MONOCYTES # (AUTO) 0.5 K/uL (0.0-1.0); MONOCYTES % (AUTO) 11.4 % (1.7-9.3); NEUTROPHILS # (AUTO) 1.4 K/uL (1.8-7.7); NEUTROPHILS % (AUTO) 32.8 % (40.0-70.0); PLATELET COUNT (AUTO) 73 K/uL (130-430); RED BLOOD CELL COUNT(AUTO) 3.22 MIL/uL (4.2-6.2); WHITE BLOOD COUNT (AUTO) 4.4 K/uL (4.8-10.8)
[2022-07-30] MEDS ORDERED: OMEP40CA20 PO (03:45)
[2022-07-30 04:30] VITALS: BP_SYST 118
[2022-07-30 04:56] LABS: BILIRUBIN,URINE NEGATIVE (NEGATIVE); BLOOD, URINE NEGATIVE (NEGATIVE); CLARITY/URINE CLEAR (CLEAR); COLOR,URINE YELLOW (YELLOW); GLUCOSE,URINE NEGATIVE (NEGATIVE); KETONES,URINE NEGATIVE (NEGATIVE); LEUKOCYTE ESTERASE ,URINE 2+ (NEGATIVE); NITRITE, URINE NEGATIVE (NEGATIVE); PROTEIN URINE NEGATIVE (NEGATIVE)
== END 2022-07-30 04:41 | disposition home or self-care (01) ==
LOC: SED 21:36
DX: K29.20 Alcoholic gastritis without bleeding (principal); R10.84 Generalized abdominal pain; Z87.19 Personal history of other diseases of the digestive system; Z79.899 Other long term (current) drug therapy
CPT/HCPCS: 99283; 80053; 83690; 85025; 36415; 81003; G0482

== ENCOUNTER 2022-08-27 22:05 | Emergency (ER) | payer MEDICAID ==
[~2022-08-27] VITALS: Ht 170.2 cm; Wt 72.6 kg
[2022-08-27 22:05] VITALS: BP_SYST 89
[~2022-08-27 22:05] MED LIST changes: +OMEP40CA20 PO
[2022-08-27 23:26] LABS: BASOPHILS % (AUTO) 1.1 % (0.0-2.0); EOSINOPHILS # (AUTO) 0.1 K/uL (0.0-0.4); EOSINOPHILS % (AUTO) 2.4 % (0.0-4.0); HEMATOCRIT 28.3 % (36-54); HEMOGLOBIN 9.6 g/dL (14.0-18.0); LYMPHOCYTES # (AUTO) 1.6 K/uL (1.0-5.5); LYMPHOCYTES % (AUTO) 36.3 % (20.5-51.5); MEAN CORPUSCULAR HEMOGLOBIN 33 pg (27-31); MEAN CORPUSCULAR HGB CONC 34 % (32-36); MEAN CORPUSCULAR VOLUME 97 fL (79.0-98.0); MONOCYTES # (AUTO) 0.6 K/uL (0.0-1.0); MONOCYTES % (AUTO) 13.2 % (1.7-9.3); PLATELET COUNT (AUTO) 126 K/uL (130-430); RED BLOOD CELL COUNT(AUTO) 2.91 MIL/uL (4.2-6.2); RED CELL DISTRIBUTION WIDTH 18.6 % (9.0-15.0); WHITE BLOOD COUNT (AUTO) 4.3 K/uL (4.8-10.8)
[2022-08-27 23:52] LABS: ALBUMIN 1.7 g/dL (3.4-4.8); CREATININE 0.71 mg/dL (0.55-1.30); TOTAL BILIRUBIN 1.1 mg/dL (0.0-1.0)
[2022-08-27 23:57] LABS: CALCIUM 6.8 mg/dL (8.4-11.0)
[2022-08-28] MEDS ORDERED: ONDA8TAB60 PO (00:11)
[2022-08-28] MEDS ORDERED: IBUP-1969 PO (00:11)
[2022-08-28] MEDS ORDERED: ONDANSETRON HCL 4 MG/2 ML VIAL IVP ONE (00:15)
[2022-08-28] MEDS ORDERED: KETOROLAC TROMETHAMINE 30 MG VIAL IVP ONE (00:15)
[2022-08-28] MEDS ORDERED: POTASSIUM CHLORIDE 20 MEQ TAB.PRT.SR PO ONE (00:15)
[2022-08-28] MEDS ORDERED: NACL 0.9% 1,000 ML IV ONE (00:15)
[2022-08-28 01:40] VITALS: BP_SYST 98
== END 2022-08-28 01:40 | disposition home or self-care (01) ==
LOC: SED 22:05
DX: R10.11 Right upper quadrant pain (principal); R11.2 Nausea with vomiting, unspecified; Z79.899 Other long term (current) drug therapy
CPT/HCPCS: 99283; 80053; 83690; 85025; 36415; J1885; J2405

== ENCOUNTER 2022-09-04 20:32 | Emergency (ER) | payer MEDICAID ==
[~2022-09-04] VITALS: Ht 162.6 cm; Wt 68.0 kg
[~2022-09-04 20:32] MED LIST changes: +IBUP-1969 PO; +ONDA8TAB60 PO
[2022-09-04 20:34] VITALS: BP_SYST 118
[2022-09-05 01:12] VITALS: BP_SYST 125
== END 2022-09-05 01:12 | disposition home or self-care (01) ==
LOC: SED 20:32
DX: Z00.00 Encounter for general adult medical examination without abnormal findings (principal); F10.20 Alcohol dependence, uncomplicated; M79.10 Myalgia, unspecified site; M54.50 Low back pain, unspecified; M79.604 Pain in right leg; Z79.899 Other long term (current) drug therapy; Y90.6 Blood alcohol level of 120-199 mg/100 ml
CPT/HCPCS: 99281

== ENCOUNTER 2022-09-12 09:58 | Emergency (ER) | payer MEDICAID ==
[~2022-09-12] VITALS: Ht 162.6 cm; Wt 49.9 kg
[2022-09-12 10:19] VITALS: BP_SYST 109
--- NOTE | 2022-09-12 10:19 | NUR ---
RECEIVED PT FROM KARISSA GRIFFITHS. PT BIB FAMILY FOR C/O ABDOMINAL PAIN, C/P, AND SOB. RESP SHALLOW, O2 SAT 95%. EKG OBTAINED AND GIVEN TO DR. STONE. TELEMONITOR SHOWS NSR. PT DENIES N/V. ABDOMEN DISTENDED. PT HAS MULTIPLE CONTUSIONS TO BUA AND TO FACE, PT HAS PREVIOUS FALL AND STICHES TO FORHEAD, SITE DENTAL AMALGAM PROCESSOR, INTACT, NO S/S OF INFECTION. DISTAL PULSES NORMAL. SKIN WARM. VSS. SIDERAILS UP X2.
--- NOTE | 2022-09-12 10:20 | NUR ---
DR. STONE AT BEDSIDE TO ASSESS PT.
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
[2022-09-12 10:37] LABS: BASOPHILS % (AUTO) 0.6 % (0.0-2.0); EOSINOPHILS % (AUTO) 0.7 % (0.0-4.0); HEMATOCRIT 28.2 % (36-54); HEMOGLOBIN 9.4 g/dL (14.0-18.0); LYMPHOCYTES # (AUTO) 0.8 K/uL (1.0-5.5); MONOCYTES # (AUTO) 0.5 K/uL (0.0-1.0); NEUTROPHILS # (AUTO) 3.9 K/uL (1.8-7.7)
[2022-09-12 11:00] LABS: PROTHROMBIN TIME 20.4 SECS (9.5-12.5)
--- NOTE | 2022-09-12 11:00 | NUR ---
CALL PLACED TO HOSPITAL QUILLER MACHINE FIXER ([phone]) PER SISTERS REQUEST. SISTER INQUIRING ABOUT CONSERVATORSHIP.
[2022-09-12 11:02] LABS: ALBUMIN 1.5 g/dL (3.4-4.8); CREATININE 0.75 mg/dL (0.55-1.30); TOTAL BILIRUBIN 1.7 mg/dL (0.0-1.0)
[2022-09-12 11:08] LABS: MEAN CORPUSCULAR HEMOGLOBIN 33 pg (27-31); MEAN CORPUSCULAR HGB CONC 33 % (32-36); MEAN CORPUSCULAR VOLUME 100 fL (79.0-98.0); MONOCYTES % (AUTO) 9.4 % (1.7-9.3); RED BLOOD CELL COUNT(AUTO) 2.82 MIL/uL (4.2-6.2); RED CELL DISTRIBUTION WIDTH 18.6 % (9.0-15.0); WHITE BLOOD COUNT (AUTO) 5.2 K/uL (4.8-10.8)
[2022-09-12 11:14] LABS: PLATELET COUNT (AUTO) 46 K/uL (130-430)
--- NOTE | 2022-09-12 11:15 | NUR ---
FUR TRIMMING MACHINE OPERATOR AT BEDSIDE TO ASSESS PT.
--- NOTE | 2022-09-12 11:21 | NUR ---
DR. STONE AT BEDSIDE TO PREFORM PARACENTESIS. CONSENT OBTAINED. 1121: PROCEDURE START. PT ACCESSED AND DRAINED FROM RIGHT LOWER ABDOMEN SITE WITH STERILE TECHNIQUE. DR. STONE REMOVED 600ML FLUID. UNABLE TO DRAIN MORE FLUID DUE TO OBSTRUCTION. SITE COVERED WITH CDI DRESSING. PT TOLERATED WELL. SITE WNL, COVERED WITH CDI DRESSING.
[2022-09-12] MEDS ORDERED: NALT50TA PO (11:45)
--- NOTE | 2022-09-12 12:10 | NUR ---
Received telephone message from the ED triage nurse to come and speak with family regarding the patient's alcohol consumption. I was advised that the family was in the lobby and wanted to speak with me. The family was no longer in the lobby, and I was provided a number to reach the sister. Telephone call made to the sister, Susan Meyer ([phone]). I called the sister who advised that the patient rents a room, is deteriorating, unable to walk, and refuses help from any and everyone. She states she is looking for help to get Power of Tractor Engine Assembler over the patient so he can get the help he needs. I advised her about how to get Power of Tractor Engine Assembler, and the need for the patient to still consent. I spoke to her about conservatorship and needing to go through the superior courts for appropriate appointing. per sister, the patient does not want help and wont accept help. I discussed resources that the hospital has that we can offer, but it it ultimately up the patient to implement to the resources and help that is offered to him. I informed the sister that I was prepared to provide information to the patient. The sister requested that I leave the resources with the patient, but to also call her when he is discharged, as she will be the one to come and pick him up. I met with the patient at bedside after the completion of his paracentesis. I introduced myself to him, explained my role in the hospital, and spoke about services that are available to him. I offered to make a substance abuse appointment for him to address his alcoholism. Per patient, he needed to "think about services" as he wasn't sure that was something he wanted to participate in. He inquired about when he was leaving and uber services. I advised him I spoke with his sister and that she indicated she was coming to get him. I attempted to go through the resources that I brought for him, but he advised me to place them in his bag. I informed him of some immediate services we could get started wit, however he stated he would talk with his sister. I soke about the Power of Tractor Engine Assembler, and he indicated he will "think about it". Prior to leaving the ED, I advised KARISSA Blanco of my conversation with the patient. She got him a lunch tray and indicated she would be discharging the patient after he ate.
[2022-09-12 12:15] VITALS: BP_SYST 111
--- NOTE | 2022-09-12 12:26 | NUR ---
Patient given written and verbal discharge instructions and verbalizes understanding. ER MD discussed with patient the results and treatment provided. Patient in stable condition. ID arm band removed. Rx of given. Patient educated on pain management and to follow up with PMD. Opportunity for questions provided and answered. Medication side effect fact sheet provided.
[2022-09-12 12:29] LABS: NEUTROPHILS % (AUTO) 74.3 % (40.0-70.0)
== END 2022-09-12 12:26 | disposition home or self-care (01) ==
LOC: SED 09:58
DX: K74.60 Unspecified cirrhosis of liver (principal); R18.8 Other ascites; D61.811 Other drug-induced pancytopenia; R14.0 Abdominal distension (gaseous); R07.9 Chest pain, unspecified; Z79.899 Other long term (current) drug therapy
CPT/HCPCS: 36415; 49083; 71045; 80053; 83690; 84484; 85025; 85610-TC; 85730-TC; 93005; 99285

== ENCOUNTER 2022-09-25 19:10 | Emergency (ER) | payer MEDICAID ==
[~2022-09-25] VITALS: Ht 167.6 cm; Wt 59.9 kg
[~2022-09-25 19:10] MED LIST changes: +NALT50TA PO
[2022-09-25 19:21] VITALS: BP_SYST 110
--- NOTE | 2022-09-25 19:26 | NUR ---
Patient triaged and placed in waiting room. VSS and patient appears in no acute distress at this time. Accompanied by BLS , awaiting available bed, and MD notified of need for MSE.
--- NOTE | 2022-09-25 20:07 | NUR ---
S TRANSPORT REQUESTING TO SEND PATIENT TO WAITING ROOM. PATIENT VSS. ABLE TO AMBULATE WITH WALKER. NOTIFIED.
--- NOTE | 2022-09-25 20:08 | NUR ---
ER examining patient IN EMS [facility]
--- NOTE | 2022-09-25 20:10 | NUR ---
PER MD PATIENT CAN WAIT IN WAITING ROOM.
--- NOTE | 2022-09-25 21:04 | NUR ---
PATIENT REFUSED BLOOD DRAW. NOTIFIED DR. JHAVERI.
[2022-09-26 00:40] LABS: BASOPHILS # (AUTO) 0.1 K/uL (0.0-0.2); BASOPHILS % (AUTO) 2.6 % (0.0-2.0); EOSINOPHILS # (AUTO) 0.1 K/uL (0.0-0.4); EOSINOPHILS % (AUTO) 1.3 % (0.0-4.0); HEMATOCRIT 30.9 % (36-54); HEMOGLOBIN 10.3 g/dL (14.0-18.0); LYMPHOCYTES # (AUTO) 1.8 K/uL (1.0-5.5); LYMPHOCYTES % (AUTO) 38.5 % (20.5-51.5); MEAN CORPUSCULAR HEMOGLOBIN 34 pg (27-31); MEAN CORPUSCULAR HGB CONC 33 % (32-36); MEAN CORPUSCULAR VOLUME 101 fL (79.0-98.0); MONOCYTES # (AUTO) 0.4 K/uL (0.0-1.0); MONOCYTES % (AUTO) 8.8 % (1.7-9.3); NEUTROPHILS # (AUTO) 2.2 K/uL (1.8-7.7); NEUTROPHILS % (AUTO) 48.8 % (40.0-70.0); PLATELET COUNT (AUTO) 108 K/uL (130-430); RED BLOOD CELL COUNT(AUTO) 3.07 MIL/uL (4.2-6.2); RED CELL DISTRIBUTION WIDTH 16.9 % (9.0-15.0); WHITE BLOOD COUNT (AUTO) 4.6 K/uL (4.8-10.8)
[2022-09-26 01:06] LABS: ALBUMIN 1.5 g/dL (3.4-4.8); CREATININE 0.6 mg/dL (0.55-1.30); TOTAL BILIRUBIN 1.1 mg/dL (0.0-1.0)
[2022-09-26 01:08] LABS: CALCIUM 6.7 mg/dL (8.4-11.0)
--- NOTE | 2022-09-26 01:38 | NUR ---
Patient placed in Triage room for MD evaluation.
--- NOTE | 2022-09-26 01:39 | NUR ---
Dr. GUARDADO in triage room examining the patient.
[2022-09-26] MEDS ORDERED: ONDA8TAB60 PO (01:47)
--- NOTE | 2022-09-26 02:16 | NUR ---
Patient given written and verbal discharge instructions and verbalizes understanding. ER DR GUARDADO discussed with patient the results and treatment provided. Patient in stable condition. ID arm band removed. Rx of ZOFRAN given. Patient educated on pain management and to follow up with PMD. Pain Scale 0/10. Opportunity for questions provided and answered. Medication side effect fact sheet provided.
[2022-09-26 02:17] VITALS: BP_SYST 115
== END 2022-09-26 02:17 | disposition home or self-care (01) ==
LOC: SED 19:10
DX: R10.12 Left upper quadrant pain (principal); R11.2 Nausea with vomiting, unspecified; Z79.899 Other long term (current) drug therapy
CPT/HCPCS: 36415; 80053; 83690; 85025; 99283

== ENCOUNTER 2022-09-28 14:58 | Emergency (ER) | payer MEDICAID ==
[~2022-09-28] VITALS: Ht 170.2 cm; Wt 72.6 kg
[2022-09-28 14:59] VITALS: BP_SYST 94
[2022-09-28] MEDS ORDERED: FURO-150 PO (18:42)
[2022-09-28] MEDS ORDERED: POTA-178 PO (18:42)
[2022-09-28 20:00] VITALS: BP_SYST 110
[2022-09-30] MEDS ORDERED: FERR325T30 (09:04)
[2022-09-30] MEDS ORDERED: VITA100T (09:04)
== END 2022-09-28 22:06 | disposition home or self-care (01) ==
LOC: SED 14:58
DX: R60.9 Edema, unspecified (principal); R10.9 Unspecified abdominal pain; Z79.899 Other long term (current) drug therapy
CPT/HCPCS: 99283

== ENCOUNTER 2022-09-29 21:30 | Inpatient (IN) | payer MEDICAID ==
[~2022-09-29] VITALS: Ht 170.2 cm; Wt 64.0 kg
[~2022-09-29 21:30] MED LIST changes: +FURO-150 PO; +POTA-178 PO
[2022-09-29 21:35] VITALS: BP_SYST 104; PULSE 74; RESP 18; TEMP 97.7; O2SAT 98
[2022-09-30 00:08] LABS: EOSINOPHILS % (AUTO) 0.6 % (0.0-4.0); HEMATOCRIT 29.1 % (36-54); HEMOGLOBIN 9.7 g/dL (14.0-18.0); LYMPHOCYTES # (AUTO) 1.8 K/uL (1.0-5.5); LYMPHOCYTES % (AUTO) 38.7 % (20.5-51.5); MEAN CORPUSCULAR HEMOGLOBIN 33 pg (27-31); MEAN CORPUSCULAR HGB CONC 34 % (32-36); MEAN CORPUSCULAR VOLUME 99 fL (79.0-98.0); MONOCYTES # (AUTO) 0.3 K/uL (0.0-1.0); MONOCYTES % (AUTO) 6.8 % (1.7-9.3); NEUTROPHILS # (AUTO) 2.4 K/uL (1.8-7.7); NEUTROPHILS % (AUTO) 52.9 % (40.0-70.0); PLATELET COUNT (AUTO) 70 K/uL (130-430); RED BLOOD CELL COUNT(AUTO) 2.94 MIL/uL (4.2-6.2); RED CELL DISTRIBUTION WIDTH 16.7 % (9.0-15.0); WHITE BLOOD COUNT (AUTO) 4.6 K/uL (4.8-10.8)
[2022-09-30 00:34] LABS: ALBUMIN 1.5 g/dL (3.4-4.8); CREATININE 0.67 mg/dL (0.55-1.30); TOTAL BILIRUBIN 1.3 mg/dL (0.0-1.0)
[2022-09-30 00:43] LABS: CALCIUM 6.6 mg/dL (8.4-11.0)
[2022-09-30] MEDS ORDERED: CALCIUM GLUC 1 GM/100ML-NACL 100 ML IV ONE (01:15)
[2022-09-30] MEDS ORDERED: MAGNESIUM SULFATE/D5W 100 ML IV ONE (01:15)
[2022-09-30 01:41] LABS: ALCOHOL, BLOOD 310 mg/dL (<10); PHOSPHORUS 3.2 mg/dL (2.7-4.5)
[2022-09-30 03:35] LABS: BILIRUBIN,URINE NEGATIVE (NEGATIVE); BLOOD, URINE 3+ (NEGATIVE); CLARITY/URINE SL CLOUDY (CLEAR); COLOR,URINE YELLOW (YELLOW); GLUCOSE,URINE NEGATIVE (NEGATIVE); KETONES,URINE TRACE (NEGATIVE); LEUKOCYTE ESTERASE ,URINE TRACE (NEGATIVE); NITRITE, URINE NEGATIVE (NEGATIVE); PH,URINE 6.5 (5.0-8.0); PROTEIN URINE NEGATIVE (NEGATIVE)
[2022-09-30 03:38] LABS: BACTERIA,URINE FEW /HPF (None Seen); RBC,URINE 20-50 /HPF (0-3)
[2022-09-30] MEDS ORDERED: LORazepam 2 MG/ML VIAL IVP PRN (09:00)
[2022-09-30] MEDS ORDERED: PARO10TA75 PO (09:04)
[2022-09-30] MEDS ORDERED: SPIR50TA5 PO (09:04)
[2022-09-30] MEDS ORDERED: FERR325T30 PO (09:04)
[2022-09-30] MEDS ORDERED: PROP20TA7 PO (09:04)
[2022-09-30] MEDS ORDERED: QUET100T34 PO (09:04)
[2022-09-30] MEDS ORDERED: ACET325T53 PO (09:04)
[2022-09-30] MEDS ORDERED: OMEP20CA15 PO (09:04)
[2022-09-30] MEDS ORDERED: IBUP-1969 PO (09:04)
[2022-09-30] MEDS ORDERED: ONDA4TAB55 PO (09:04)
[2022-09-30] MEDS ORDERED: FURO20TA4 PO (09:04)
[2022-09-30] MEDS ORDERED: CHLO25CA10 PO (09:04)
[2022-09-30] MEDS ORDERED: VITA100T PO (09:04)
[2022-09-30 09:11] LABS: ALBUMIN 1.3 g/dL (3.4-4.8); CREATININE 0.59 mg/dL (0.55-1.30); TOTAL BILIRUBIN 1.3 mg/dL (0.0-1.0)
[2022-09-30] MEDS ORDERED: hydrALAZINE HCL 20 MG/ML VIAL IVP PRN (09:15)
[2022-09-30] MEDS ORDERED: MILK OF MAGNESIA 30 ML UDC PO PRN (09:15)
[2022-09-30] MEDS ORDERED: ONDANSETRON HCL 4 MG/2 ML VIAL IVP PRN (09:15)
[2022-09-30 09:30] VITALS: BP_SYST 100; PULSE 93; RESP 18; TEMP 98; O2SAT 97
[2022-09-30 09:36] LABS: CALCIUM 6.6 mg/dL (8.4-11.0)
[2022-09-30 10:12] VITALS: BP_SYST 100; PULSE 93; RESP 18; TEMP 98; O2SAT 97
[2022-09-30] MEDS: NACL 0.9% 1,000 ML IV SCH ×2 (12:09→23:14)
[2022-09-30] MEDS: cefTRIAXone 1 GM in D5W 50 ML IV SCH (12:10)
[2022-09-30 13:37] LABS: ALBUMIN 1.3 g/dL (3.4-4.8); CREATININE 0.62 mg/dL (0.55-1.30); TOTAL BILIRUBIN 1.4 mg/dL (0.0-1.0)
[2022-09-30 13:50] LABS: CALCIUM 6.5 mg/dL (8.4-11.0)
[2022-09-30] MEDS: chlordiazePOXIDE HCL 25 MG CAPSULE PO SCH ×2 (14:54→22:37)
[2022-09-30 16:54] VITALS: BP_SYST 90; PULSE 90; RESP 17; TEMP 98.1; O2SAT 94
[2022-10-01 00:56] VITALS: BP_SYST 100; PULSE 73; RESP 18; TEMP 97.7; O2SAT 93
[2022-10-01] MEDS: chlordiazePOXIDE HCL 25 MG CAPSULE PO SCH ×4 (05:58→21:47)
[2022-10-01 08:00] VITALS: BP_SYST 112; PULSE 88; RESP 20; TEMP 98.5; O2SAT 94
[2022-10-01] MEDS: FERROUS SULFATE 325 MG TABLET.DR PO SCH (09:39)
[2022-10-01] MEDS: cefTRIAXone 1 GM in D5W 50 ML IV SCH (09:39)
[2022-10-01] MEDS: PARoxetine HCL 20 MG TABLET PO SCH (09:40)
[2022-10-01] MEDS: FUROSEMIDE 20 MG TABLET PO SCH (09:41)
[2022-10-01] MEDS: SPIRONOLACTONE 50 MG TABLET (ALDACTONE) PO SCH ×2 (09:42→21:46)
[2022-10-01] MEDS ORDERED: FOLIC ACID 1 MG TABLET PO ONE (11:00)
[2022-10-01] MEDS ORDERED: MULTIVITAMINS TAB 1 TABLET PO ONE (11:00)
[2022-10-01] MEDS ORDERED: THIAMINE HCL 100 MG TABLET PO ONE (11:00)
[2022-10-01 11:50] VITALS: BP_SYST 100; PULSE 73; RESP 19; TEMP 97.6; O2SAT 94
[2022-10-01] MEDS: PROPRANOLOL HCL 10 MG TABLET (INDERAL) PO SCH ×2 (15:00→21:47)
[2022-10-01] MEDS: NACL 0.9% 1,000 ML IV SCH (15:54)
[2022-10-01 16:00] VITALS: BP_SYST 97; PULSE 74; RESP 18; TEMP 98.5
[2022-10-01] MEDS ORDERED: POTASSIUM CHLORIDE 20 MEQ/PKT PACKET PO ONE (18:00)
[2022-10-01 19:00] VITALS: BP_SYST 105; PULSE 75; RESP 16; TEMP 98.2; O2SAT 96
[2022-10-01 20:00] VITALS: BP_SYST 105; PULSE 75; RESP 16; TEMP 98.2; O2SAT 96
[2022-10-01] MEDS: QUEtiapine FUMARATE 100 MG TABLET PO SCH (21:47)
[2022-10-02 03:25] VITALS: BP_SYST 110; PULSE 76; RESP 18; TEMP 97.8; O2SAT 95
[2022-10-02 04:49] LABS: BASOPHILS % (AUTO) 1.2 % (0.0-2.0); EOSINOPHILS # (AUTO) 0.1 K/uL (0.0-0.4); EOSINOPHILS % (AUTO) 3.6 % (0.0-4.0); HEMATOCRIT 27.9 % (36-54); HEMOGLOBIN 9.3 g/dL (14.0-18.0); LYMPHOCYTES # (AUTO) 0.6 K/uL (1.0-5.5); LYMPHOCYTES % (AUTO) 23.5 % (20.5-51.5); MEAN CORPUSCULAR HEMOGLOBIN 33 pg (27-31); MEAN CORPUSCULAR HGB CONC 33 % (32-36); MEAN CORPUSCULAR VOLUME 100 fL (79.0-98.0); MONOCYTES # (AUTO) 0.2 K/uL (0.0-1.0); MONOCYTES % (AUTO) 6.1 % (1.7-9.3); NEUTROPHILS # (AUTO) 1.8 K/uL (1.8-7.7); NEUTROPHILS % (AUTO) 65.6 % (40.0-70.0); RED BLOOD CELL COUNT(AUTO) 2.79 MIL/uL (4.2-6.2); RED CELL DISTRIBUTION WIDTH 16.5 % (9.0-15.0); WHITE BLOOD COUNT (AUTO) 2.7 K/uL (4.8-10.8)
[2022-10-02 04:53] LABS: PLATELET COUNT (AUTO) 31 K/uL (130-430)
[2022-10-02 05:32] LABS: ALBUMIN 1.2 g/dL (3.4-4.8); BILIRUBIN,DIRECT 1.3 mg/dL (0.0-0.3); CREATININE 0.55 mg/dL (0.55-1.30); TOTAL BILIRUBIN 1.9 mg/dL (0.0-1.0)
[2022-10-02 05:37] LABS: CALCIUM 6.8 mg/dL (8.4-11.0)
[2022-10-02] MEDS: NACL 0.9% 1,000 ML IV SCH ×2 (05:38→21:31)
[2022-10-02 08:00] VITALS: BP_SYST 152; PULSE 70; RESP 16; TEMP 97.1; O2SAT 97
[2022-10-02] MEDS: MULTIVITAMINS TAB 1 TABLET PO SCH (09:18)
[2022-10-02] MEDS: PARoxetine HCL 20 MG TABLET PO SCH (09:18)
[2022-10-02] MEDS: chlordiazePOXIDE HCL 25 MG CAPSULE PO SCH ×3 (09:19→21:09)
[2022-10-02] MEDS: FOLIC ACID 1 MG TABLET PO SCH (09:19)
[2022-10-02] MEDS: SPIRONOLACTONE 50 MG TABLET (ALDACTONE) PO SCH ×2 (09:19→21:08)
[2022-10-02] MEDS: PROPRANOLOL HCL 10 MG TABLET (INDERAL) PO SCH ×3 (09:20→21:09)
[2022-10-02] MEDS: THIAMINE HCL 100 MG TABLET PO SCH (09:20)
[2022-10-02] MEDS: FERROUS SULFATE 325 MG TABLET.DR PO SCH (09:21)
[2022-10-02] MEDS: FUROSEMIDE 20 MG TABLET PO SCH (09:21)
[2022-10-02] MEDS: cefTRIAXone 1 GM in D5W 50 ML IV SCH (10:17)
[2022-10-02 13:47] VITALS: BP_SYST 122; PULSE 56; RESP 14; TEMP 96.9; O2SAT 96
[2022-10-02 18:45] VITALS: BP_SYST 124; PULSE 58; RESP 14; TEMP 96.8; O2SAT 96
[2022-10-02 19:30] VITALS: O2SAT 93
[2022-10-02 20:00] VITALS: BP_SYST 132; PULSE 71; RESP 18; TEMP 97.6; O2SAT 93
[2022-10-02] MEDS: CIPROFLOXACIN HCL 500 MG TABLET PO SCH (21:09)
[2022-10-02] MEDS: QUEtiapine FUMARATE 100 MG TABLET PO SCH (21:09)
[2022-10-03 01:43] VITALS: BP_SYST 121; PULSE 57; RESP 18; TEMP 96.9; O2SAT 92
[2022-10-03 08:55] VITALS: BP_SYST 122; PULSE 64; RESP 16; TEMP 96.3; O2SAT 95
[2022-10-03] MEDS: FERROUS SULFATE 325 MG TABLET.DR PO SCH (09:30)
[2022-10-03] MEDS: CIPROFLOXACIN HCL 500 MG TABLET PO SCH ×2 (09:30→21:46)
[2022-10-03] MEDS: FUROSEMIDE 20 MG TABLET PO SCH (09:30)
[2022-10-03] MEDS: chlordiazePOXIDE HCL 25 MG CAPSULE PO SCH ×3 (09:30→21:46)
[2022-10-03] MEDS: MULTIVITAMINS TAB 1 TABLET PO SCH (09:37)
[2022-10-03] MEDS: PARoxetine HCL 20 MG TABLET PO SCH (09:37)
[2022-10-03] MEDS: FOLIC ACID 1 MG TABLET PO SCH (09:37)
[2022-10-03] MEDS: PROPRANOLOL HCL 10 MG TABLET (INDERAL) PO SCH ×3 (09:38→21:00)
[2022-10-03] MEDS: THIAMINE HCL 100 MG TABLET PO SCH (09:38)
[2022-10-03] MEDS: SPIRONOLACTONE 50 MG TABLET (ALDACTONE) PO SCH ×2 (09:39→21:00)
[2022-10-03] MEDS: NACL 0.9% 1,000 ML IV SCH (09:41)
[2022-10-03 12:40] VITALS: BP_SYST 113; PULSE 67; RESP 18; TEMP 96.9; O2SAT 94
[2022-10-03 16:16] VITALS: BP_SYST 124; PULSE 71; RESP 14; TEMP 97.6; O2SAT 94
[2022-10-03 19:50] VITALS: BP_SYST 91; PULSE 76; RESP 18; TEMP 98.3; O2SAT 93
[2022-10-03] MEDS: QUEtiapine FUMARATE 100 MG TABLET PO SCH (21:00)
[2022-10-04 00:55] VITALS: BP_SYST 121; PULSE 70; RESP 16; TEMP 97.4; O2SAT 94
[2022-10-04] MEDS: NACL 0.9% 1,000 ML IV SCH (01:32)
[2022-10-04 05:46] LABS: BASOPHILS % (AUTO) 0.8 % (0.0-2.0); EOSINOPHILS # (AUTO) 0.1 K/uL (0.0-0.4); EOSINOPHILS % (AUTO) 1.4 % (0.0-4.0); HEMATOCRIT 27.2 % (36-54); LYMPHOCYTES # (AUTO) 0.9 K/uL (1.0-5.5); LYMPHOCYTES % (AUTO) 25.3 % (20.5-51.5); MEAN CORPUSCULAR HEMOGLOBIN 33 pg (27-31); MEAN CORPUSCULAR HGB CONC 33 % (32-36); MEAN CORPUSCULAR VOLUME 100 fL (79.0-98.0); MONOCYTES # (AUTO) 0.3 K/uL (0.0-1.0); MONOCYTES % (AUTO) 8.6 % (1.7-9.3); NEUTROPHILS # (AUTO) 2.3 K/uL (1.8-7.7); NEUTROPHILS % (AUTO) 63.9 % (40.0-70.0); RED BLOOD CELL COUNT(AUTO) 2.73 MIL/uL (4.2-6.2); RED CELL DISTRIBUTION WIDTH 16.2 % (9.0-15.0); WHITE BLOOD COUNT (AUTO) 3.7 K/uL (4.8-10.8)
[2022-10-04 05:54] LABS: CREATININE 0.59 mg/dL (0.55-1.30)
[2022-10-04 05:58] LABS: PLATELET COUNT (AUTO) 39 K/uL (130-430)
[2022-10-04 06:35] LABS: CALCIUM 6.6 mg/dL (8.4-11.0)
[2022-10-04] MEDS ORDERED: POTASSIUM CHLORIDE 20 MEQ TAB.PRT.SR PO ONE (07:00)
[2022-10-04 07:37] VITALS: BP_SYST 138; PULSE 78; RESP 16; TEMP 97.7; O2SAT 95
[2022-10-04] MEDS: PROPRANOLOL HCL 10 MG TABLET (INDERAL) PO SCH (09:33)
[2022-10-04] MEDS: FOLIC ACID 1 MG TABLET PO SCH (09:33)
[2022-10-04] MEDS: PARoxetine HCL 20 MG TABLET PO SCH (09:33)
[2022-10-04] MEDS: FUROSEMIDE 20 MG TABLET PO SCH (09:34)
[2022-10-04] MEDS: MULTIVITAMINS TAB 1 TABLET PO SCH (09:34)
[2022-10-04] MEDS: chlordiazePOXIDE HCL 25 MG CAPSULE PO SCH (09:34)
[2022-10-04] MEDS: CIPROFLOXACIN HCL 500 MG TABLET PO SCH (09:35)
[2022-10-04] MEDS: THIAMINE HCL 100 MG TABLET PO SCH (09:35)
[2022-10-04] MEDS: SPIRONOLACTONE 50 MG TABLET (ALDACTONE) PO SCH (09:35)
[2022-10-04] MEDS: FERROUS SULFATE 325 MG TABLET.DR PO SCH (09:36)
[2022-10-04] MEDS ORDERED: CIPR-260 PO (10:55)
[2022-10-04 11:47] VITALS: BP_SYST 94; PULSE 65; RESP 17; TEMP 97.6; O2SAT 93
[2022-10-04] MEDS ORDERED: chlordiazePOXIDE HCL 10 MG CAPSULE PO SCH (15:00)
[2022-10-17] MEDS ORDERED: SENN-278 PO (15:56)
== END 2022-10-04 15:40 | DRG 280 ==
LOC: SED 21:30 → STU 09-30 08:52 → SMU 10-03 13:36
PROVIDERS: ADMIT Internal Medicine; ATTEND Internal Medicine
DX: K70.30 Alcoholic cirrhosis of liver without ascites (principal); E43 Unspecified severe protein-calorie malnutrition; K76.82 Hepatic encephalopathy; E83.51 Hypocalcemia; D63.8 Anemia in other chronic diseases classified elsewhere; E87.1 Hypo-osmolality and hyponatremia; D69.59 Other secondary thrombocytopenia; N39.0 Urinary tract infection, site not specified; Y90.9 Presence of alcohol in blood, level not specified; Z20.822 Contact with and (suspected) exposure to COVID-19; F10.129 Alcohol abuse with intoxication, unspecified; F10.139 Alcohol abuse with withdrawal, unspecified; Z59.00 Homelessness unspecified; Z79.899 Other long term (current) drug therapy; Z79.1 Long term (current) use of non-steroidal anti-inflammatories (NSAID); Z68.22 Body mass index [BMI] 22.0-22.9, adult
CPT/HCPCS: 36415; 76700-TC; 80048; 80053; 80076; 81000; 82105; 82140; 83690; 83735; 83880; 84100; 84484; 85025; 87086; 93005; 93970; 97110-GP; 97530-GP; 99285; G0378; G0482; J0696; J7030; J7060

== ENCOUNTER 2022-10-17 07:42 | Inpatient (IN) | payer MEDICAID ==
[~2022-10-17] VITALS: Ht 157.5 cm; Wt 52.2 kg
[~2022-10-17 07:42] MED LIST changes: -ACET-2634 PO; +ACET325T53 PO; -BEN50 PO; +CHLO25CA10 PO; +CIPR-260 PO; -DOXE10CA2 PO; -FAMO40TA7 PO; +FERR325T30; -FURO-150 PO; +FURO20TA4 PO; -GLUC-119 PO; -HYDR-3917 PO; -LIB25 PO; -LORA-259 PO; -Lactulose PO; -NALT50TA PO; -NEPH PO; +OMEP20CA15 PO; -OMEP40CA20 PO; +ONDA4TAB55 PO; -ONDA8TAB60 PO; +PARO10TA75 PO; -POTA-178 PO; -PRO40 PO; +PROP20TA7 PO; +QUET100T34 PO; +SPIR50TA5 PO; -TRAM50TA2 PO; +VITA100T; -[UNRECOGNIZED DRUG - CODE] TP
[2022-10-17 07:47] VITALS: BP_SYST 74; PULSE 107; RESP 18; TEMP 98.3; O2SAT 97
--- NOTE | 2022-10-17 07:47 | NUR ---
Placed in room 08 . Placed on playground monitor, blood pressure machine and pulse oximeter. To gown for exam. Side rails up.
--- NOTE | 2022-10-17 07:53 | NUR ---
DR STONE IN ROOM FOR EXAM
--- NOTE | 2022-10-17 07:56 | NUR ---
PT BIBA FROM [facility] FOR HYPOTENSION, LETHARGIC AND GEN WEAKNESS. PT CAME IN WITH #20 TO LEFT AC, FLUIDS NS-BOLUS INFUAING WELL. ALERT, ORIENTED X 3, DENIES ANY PAIN OR SOB. ABLE TO FOLLOW SIMPLE COMMANDS. SAFETY PRECAUTIONS IN PLACE, ON RA @98%
[2022-10-17] MEDS ORDERED: NACL 0.9% 2,000 ML IV ONE (08:00)
[2022-10-17 08:45] LABS: BASOPHILS % (AUTO) 0.2 % (0.0-2.0); EOSINOPHILS # (AUTO) 0.1 K/uL (0.0-0.4); EOSINOPHILS % (AUTO) 1.1 % (0.0-4.0); HEMATOCRIT 29.6 % (36-54); HEMOGLOBIN 9.7 g/dL (14.0-18.0); LYMPHOCYTES # (AUTO) 1.5 K/uL (1.0-5.5); LYMPHOCYTES % (AUTO) 30.3 % (20.5-51.5); MEAN CORPUSCULAR HEMOGLOBIN 32 pg (27-31); MEAN CORPUSCULAR HGB CONC 33 % (32-36); MEAN CORPUSCULAR VOLUME 98 fL (79.0-98.0); MONOCYTES # (AUTO) 0.7 K/uL (0.0-1.0); MONOCYTES % (AUTO) 13.2 % (1.7-9.3); NEUTROPHILS # (AUTO) 2.7 K/uL (1.8-7.7); NEUTROPHILS % (AUTO) 55.2 % (40.0-70.0); PLATELET COUNT (AUTO) 175 K/uL (130-430); RED BLOOD CELL COUNT(AUTO) 3.01 MIL/uL (4.2-6.2); RED CELL DISTRIBUTION WIDTH 15.3 % (9.0-15.0)
--- NOTE | 2022-10-17 09:13 | NUR ---
NO ACUTE CHNAGES IN STATUS, PT WITH EYES CLOSED, IN NAD.
[2022-10-17 09:18] LABS: ALANINE AMINOTRANSFERASE 18 U/L (12-78); ALBUMIN 1.2 g/dL (3.4-4.8); ANION GAP 5 (5-15); ASPARTATE AMINOTRANSFERASE 40 U/L (10-37); CHLORIDE 104 mmol/L (98-107); CREATININE 0.59 mg/dL (0.55-1.30); GFR AFRICAN AMERICAN 185 mL/min (>90); GLUCOSE 90 mg/dL (74-106); TOTAL BILIRUBIN 0.7 mg/dL (0.0-1.0); UREA NITROGEN, BLOOD 9 mg/dL (8-21)
[2022-10-17 09:21] LABS: CALCIUM 6.9 mg/dL (8.4-11.0)
[2022-10-17 09:29] LABS: INR 1.6 (0.80-1.20); PROTHROMBIN TIME 16.1 SECS (9.5-12.5)
[2022-10-17 10:14] LABS: BILIRUBIN,URINE NEGATIVE (NEGATIVE); BLOOD, URINE NEGATIVE (NEGATIVE); CLARITY/URINE CLEAR (CLEAR); COLOR,URINE YELLOW (YELLOW); GLUCOSE,URINE NEGATIVE (NEGATIVE); KETONES,URINE NEGATIVE (NEGATIVE); LEUKOCYTE ESTERASE ,URINE NEGATIVE (NEGATIVE); NITRITE, URINE NEGATIVE (NEGATIVE); PH,URINE 6.5 (5.0-8.0); PROTEIN URINE NEGATIVE (NEGATIVE)
--- NOTE | 2022-10-17 12:00 | NUR ---
ADMITTING ORDERS RECEIVED BY MIKAELA HANCOCK
[2022-10-17] MEDS ORDERED: ZOLPIDEM TARTRATE 5 MG TABLET PO PRN (12:45)
[2022-10-17] MEDS ORDERED: POTASSIUM CHLORIDE 20 MEQ TAB.PRT.SR PO PRN (12:45)
[2022-10-17] MEDS ORDERED: NALOXONE HCL 0.4 MG/ML AMP (NARCAN) IVP PRN ×2 (12:45)
[2022-10-17] MEDS ORDERED: MAGNESIUM SULFATE 50 ML IV PRN (12:45)
[2022-10-17] MEDS ORDERED: ONDANSETRON HCL 4 MG/2 ML VIAL IVP PRN (12:45)
[2022-10-17] MEDS ORDERED: MUPIROCIN 2% TOPICAL OINTMENT 22 GM NS PRN (12:45)
[2022-10-17] MEDS ORDERED: ACETAMINOPHEN 325 MG TABLET PO PRN ×2 (12:45→13:15)
[2022-10-17] MEDS ORDERED: MORPHINE 2 MG/ML INJ. SYRINGE IVP PRN ×2 (12:45)
[2022-10-17] MEDS ORDERED: DOCUSATE SODIUM 100 MG CAPSULE PO PRN (12:45)
[2022-10-17] MEDS ORDERED: LACTULOSE 20 GM/30 ML UDC PO ONE (13:30)
[2022-10-17 13:35] LABS: BARBITURATE, URINE NEGATIVE (NEG <=200); BENZODIAZEPINE, URINE POSITIVE (NEG <=150); CANNABINOID, URINE NEGATIVE (NEG <=50); COCAINE, URINE NEGATIVE (NEG <=150); METHAMPHETAMINES SCREEN,URINE NEGATIVE (NEG <=500); OPIATE, URINE NEGATIVE (NEG <=100); PHENCYCLIDINE SCREEN,URINE NEGATIVE (NEG <=25); UR TRICYCLIC ANTIDEPRESSANTS POSITIVE (NEG <=300); URINE AMPHETAMINE NEGATIVE (NEG <=500); URINE METHADONE NEGATIVE (NEG <=200); URINE OXYCODONE SCREEN NEGATIVE (NEG <=100); URINE PROPOXYPHENE SCREEN NEGATIVE (NEG <=300)
--- NOTE | 2022-10-17 15:14 | NUR ---
PT AWAKE, ALERT, REQUESTING FOR URINAL. LUNCH PROVIDED, EATING WELL. FLUIDS OFFERED. SAFETY PRECAUTIONS IN PLACE.
--- NOTE | 2022-10-17 15:50 | NUR ---
Admit bed requested Patient will be admitted to care of . Admitted to TELE unit. Diagnosis HEPATIC ENCEPHALOPATHY Inpatient (Yes or No) Y Observation (Yes or No) N Orientation concerns or request close to nursing station (Yes or No) Y Covid Status NA On vent or bipap N Isolation requirements N Needs a sitter N From Home (Yes or if No enter name of facility) [facility] Requires Dialysis (Yes or No) N Med Rec Completed (Yes of No) Y
[2022-10-17] MEDS ORDERED: DOCU-144 PO (15:56)
[2022-10-17] MEDS ORDERED: MOM PO (15:56)
[2022-10-17] MEDS ORDERED: SENN-278 (15:56)
[2022-10-17 17:01] VITALS: BP_SYST 101; PULSE 73; RESP 16; TEMP 97.1
--- NOTE | 2022-10-17 17:06 | NUR ---
Patient will be admitted to care of [facility]. Admitted to TELE unit. Will go to room 132B. Belongings list completed. Complete and up to date summary report printed. SBAR report to be given at bedside with opportunity for questions.
[2022-10-17 17:13] VITALS: O2SAT 98
--- NOTE | 2022-10-17 17:15 | NUR ---
ADMISSION: The patient, SHAW JACOBS, 51 y/o, M admitted by DONTAE VILLEGAS DO, was given written information regarding hospital policies, unit procedures and contact persons. no valuables or any belongings came with patient .
--- NOTE | 2022-10-17 18:49 | NUR ---
ROUNDING Pt resting in bed, does not appear to be in distress. watching TV, asked for urinal. No complain of pain or discomfort. . Fall precaution maintained. call light in reach. will endorse care to the night nurse
--- NOTE | 2022-10-17 19:20 | NUR ---
INITIAL NOTES; endorsed by day shift, admitted today. DX Hepatic Encephalopathy. on fall risk -precautions, bed alarm on. pt. room close to nurses station.
[2022-10-17 20:00] VITALS: BP_SYST 97; PULSE 68; RESP 20; TEMP 96.6; O2SAT 97
--- NOTE | 2022-10-17 20:25 | NUR ---
NOTES: pt. awake but getting confused , trying to get out bed, pt. was just admitted today. c/o the food is not good. pt. speaks Portuguese with little Mosotho. IV lock on left arm. noted multiple skin bruising on both arms.
[2022-10-17 21:00] VITALS: O2SAT 100
[2022-10-17] MEDS ORDERED: CALCIUM CARBONATE 650 MG TABLET PO SCH (21:00)
[2022-10-17] MEDS: LACTULOSE 20 GM/30 ML UDC PO SCH (21:29)
[2022-10-17] MEDS: QUEtiapine FUMARATE 100 MG TABLET PO SCH (21:30)
--- NOTE | 2022-10-17 23:30 | NUR ---
NOTES: 'pt. disoriented, trying to get out of bed. pt speaks italian but also can speak Taiwanese. side rails up. instructed on the use of call light.
[2022-10-18 00:18] VITALS: BP_SYST 89; PULSE 59; RESP 19; TEMP 97.6; O2SAT 94
--- NOTE | 2022-10-18 03:02 | NUR ---
NOTES: pt. sleeping at this time. bed alarm on.
--- NOTE | 2022-10-18 03:32 | NUR ---
NOTES: pt. awakened and talking to himself.
--- NOTE | 2022-10-18 06:30 | NUR ---
CLOSING NOTES; checked if has a BM, nothing, pull up diaper in place. bed alarm on. IV lock intact. for further assistance. will endorse to incoming shift.
[2022-10-18 09:07] VITALS: BP_SYST 106; PULSE 91; RESP 20; TEMP 97.1; O2SAT 100
[2022-10-18] MEDS: CALCIUM 500 MG/TAB PO SCH (09:16)
[2022-10-18] MEDS: LACTULOSE 20 GM/30 ML UDC PO SCH ×3 (09:17→21:50)
[2022-10-18] MEDS: PARoxetine HCL 20 MG TABLET PO SCH (09:17)
--- NOTE | 2022-10-18 11:51 | NUR ---
Transfer Care: Tranfer care to [facility] ,patient in stable condition.
[2022-10-18 12:40] VITALS: BP_SYST 114; PULSE 85; RESP 19; TEMP 98.2; O2SAT 97
[2022-10-18] MEDS: LORazepam 2 MG/ML VIAL IVP PRN ×2 (13:41→17:41)
[2022-10-18 17:00] VITALS: BP_SYST 114; PULSE 70; RESP 17; TEMP 98.4; O2SAT 95
--- NOTE | 2022-10-18 19:20 | NUR ---
INITIAL NOTES; endorsed by day shift with DX Hepatic Encephalopathy. pt. awake but disoriented. on environmental monitoring specialist and shows sinus rhythm. call light within reach. bed alarm on.
[2022-10-18 20:00] VITALS: BP_SYST 103; PULSE 93; RESP 20; TEMP 97.2; O2SAT 98
[2022-10-18 21:00] VITALS: O2SAT 98
--- NOTE | 2022-10-18 21:30 | NUR ---
NOTES: due medications given. IV lock on left antecubital. bed alarm on. for close observation.
[2022-10-18] MEDS: QUEtiapine FUMARATE 100 MG TABLET PO SCH (21:50)
--- NOTE | 2022-10-18 23:00 | NUR ---
NOTES: pt. been sleeping comfortably.
--- NOTE | 2022-10-18 23:40 | NUR ---
Dietitian Recommendations *Continue on regular diet per MD Rx *Recommend Ensure Enlive BID with meals to help meet nutrient needs Please refer to RD Assessment 10/18/22 for details FILI ZIMMERMAN Addendum: 10/18/22 at [address] Amended: Links added.
[2022-10-19 00:09] VITALS: BP_SYST 98; PULSE 90; RESP 20; TEMP 97.5; O2SAT 97
--- NOTE | 2022-10-19 01:45 | NUR ---
NOTES: pt. woke up trying to get out of bed looking for his pants. pt. awake, but gets disoriented. reorient to place. on fall risk. pt. got incontinent of urine, no bm. complete linen changed and gown. call light within reach.
--- NOTE | 2022-10-19 04:33 | NUR ---
NOTES: remains awake, legs out. repositioned in bed. pt. eyes very sleepy.
--- NOTE | 2022-10-19 06:30 | NUR ---
CLOSING NOTES; pt. remains disoriented, still trying to get out of bed. IV site intact. bruising on arms noted. for further care and observation. will endorsed to incoming shift. bed alarm on.
[2022-10-19 07:45] LABS: BASOPHILS % (AUTO) 0.3 % (0.0-2.0); EOSINOPHILS # (AUTO) 0.1 K/uL (0.0-0.4); EOSINOPHILS % (AUTO) 0.8 % (0.0-4.0); HEMATOCRIT 33.1 % (36-54); HEMOGLOBIN 10.9 g/dL (14.0-18.0); LYMPHOCYTES # (AUTO) 1.9 K/uL (1.0-5.5); LYMPHOCYTES % (AUTO) 31.5 % (20.5-51.5); MEAN CORPUSCULAR HEMOGLOBIN 32 pg (27-31); MEAN CORPUSCULAR HGB CONC 33 % (32-36); MEAN CORPUSCULAR VOLUME 98 fL (79.0-98.0); MONOCYTES # (AUTO) 0.6 K/uL (0.0-1.0); MONOCYTES % (AUTO) 10.2 % (1.7-9.3); NEUTROPHILS # (AUTO) 3.5 K/uL (1.8-7.7); NEUTROPHILS % (AUTO) 57.2 % (40.0-70.0); PLATELET COUNT (AUTO) 179 K/uL (130-430); RED CELL DISTRIBUTION WIDTH 15.6 % (9.0-15.0); WHITE BLOOD COUNT (AUTO) 6.2 K/uL (4.8-10.8)
[2022-10-19 07:53] LABS: CALCIUM 7.8 mg/dL (8.4-11.0); CREATININE 0.66 mg/dL (0.55-1.30)
[2022-10-19 08:00] VITALS: BP_SYST 97; PULSE 77; RESP 15; TEMP 96; O2SAT 98
[2022-10-19] MEDS: LACTULOSE 20 GM/30 ML UDC PO SCH (09:14)
[2022-10-19] MEDS: CALCIUM 500 MG/TAB PO SCH (09:14)
[2022-10-19] MEDS: PARoxetine HCL 20 MG TABLET PO SCH (09:14)
--- NOTE | 2022-10-19 09:25 | NUR ---
>>>PT NOTES<<< PATIENT REFUSED PHYSICAL THERAPY TODAY. WILL FOLLOW UP TOMORROW, 10/20/22.
--- NOTE | 2022-10-19 09:59 | NUR ---
MR JACOBS WILL BE GOING BACK TO [facility] TODAY TO ROOM 200B. [phone]. [employer] WILL FLYING SQUAD WORKER AT 1PM. PER CALL THE CAR [phone]
[2022-10-19] MEDS: LORazepam 2 MG/ML VIAL IVP PRN (11:13)
--- NOTE | 2022-10-19 12:03 | NUR ---
CALLED [facility] AND GAVE REPORT TO DEVON HANCOCK.
[2022-10-19 12:08] VITALS: BP_SYST 97; PULSE 77; RESP 15; TEMP 96; O2SAT 98
--- NOTE | 2022-10-19 12:54 | NUR ---
PATIENT PICKED UP BY [facility] @ 1230. PATIENT IO OUT. PATIENT'S BELONGINGS SENT WITH THE PATIENT.
[2022-10-19 13:06] VITALS: BP_SYST 119; PULSE 109; RESP 19; TEMP 97.9; O2SAT 97
[2022-10-19 16:00] VITALS: BP_SYST 100; PULSE 86; RESP 16; TEMP 96.8; O2SAT 96
== END 2022-10-19 12:50 | DRG 280 ==
LOC: SED 07:42 → STU 11:59
PROVIDERS: ADMIT General Practice; ATTEND General Practice
DX: K70.9 Alcoholic liver disease, unspecified (principal); E44.0 Moderate protein-calorie malnutrition; I95.9 Hypotension, unspecified; K76.82 Hepatic encephalopathy; E83.51 Hypocalcemia; K74.60 Unspecified cirrhosis of liver; F41.9 Anxiety disorder, unspecified; I10 Essential (primary) hypertension; F32.A Depression, unspecified; K21.9 Gastro-esophageal reflux disease without esophagitis; Z79.1 Long term (current) use of non-steroidal anti-inflammatories (NSAID); Z79.899 Other long term (current) drug therapy; Z68.21 Body mass index [BMI] 21.0-21.9, adult
CPT/HCPCS: 36415; 70450-TC; 71045; 76376; 80048; 80053; 80307; 81003; 82140; 83037; 83605; 83735; 84484; 85025; 85610-TC; 85730-TC; 87040; 87081; 87086; 93005; 96360; 97110-GP; 97116-GP; 97530-GP; 99291; G0378; G0482; J2060; J7030

== ENCOUNTER 2022-11-01 17:15 | Inpatient (IN) | payer MEDICAID ==
[~2022-11-01] VITALS: Ht 162.6 cm; Wt 44.6 kg
[~2022-11-01 17:15] MED LIST changes: -CIPR-260 PO; +DOCU-144 PO; -FERR325T30; +FERR325T30 PO; +MOM PO; +SENN-278 PO; -VITA100T; +VITA100T PO
[2022-11-01 17:25] VITALS: BP_SYST 84; PULSE 74; RESP 19; TEMP 98.3; O2SAT 98
[2022-11-01] MEDS ORDERED: NACL 0.9% 1,000 ML IV ONE (19:15)
[2022-11-01 20:13] LABS: BASOPHILS # (AUTO) 0.1 K/uL (0.0-0.2); EOSINOPHILS # (AUTO) 0.1 K/uL (0.0-0.4); EOSINOPHILS % (AUTO) 1.2 % (0.0-4.0); HEMATOCRIT 32.7 % (36-54); HEMOGLOBIN 10.7 g/dL (14.0-18.0); LYMPHOCYTES # (AUTO) 1.6 K/uL (1.0-5.5); LYMPHOCYTES % (AUTO) 28.7 % (20.5-51.5); MEAN CORPUSCULAR HEMOGLOBIN 31 pg (27-31); MEAN CORPUSCULAR HGB CONC 33 % (32-36); MEAN CORPUSCULAR VOLUME 95 fL (79.0-98.0); MONOCYTES # (AUTO) 0.5 K/uL (0.0-1.0); MONOCYTES % (AUTO) 8.7 % (1.7-9.3); NEUTROPHILS # (AUTO) 3.3 K/uL (1.8-7.7); NEUTROPHILS % (AUTO) 60.4 % (40.0-70.0); PLATELET COUNT (AUTO) 152 K/uL (130-430); RED BLOOD CELL COUNT(AUTO) 3.46 MIL/uL (4.2-6.2); RED CELL DISTRIBUTION WIDTH 15.2 % (9.0-15.0); WHITE BLOOD COUNT (AUTO) 5.5 K/uL (4.8-10.8)
[2022-11-01 20:29] LABS: ANION GAP 6 (5-15); CALCIUM 7.9 mg/dL (8.4-11.0); CARBON DIOXIDE 27 mmol/L (23-29); CHLORIDE 105 mmol/L (98-107); CREATININE 0.69 mg/dL (0.55-1.30); GFR AFRICAN AMERICAN 154 mL/min (>90); GLUCOSE 77 mg/dL (74-106); POTASSIUM 3.5 mmol/L (3.5-5.1); SODIUM SERUM 138 mmol/L (136-145); UREA NITROGEN, BLOOD 15 mg/dL (8-21)
[2022-11-01] MEDS ORDERED: HALOPERIDOL LACTATE 5 MG/ML VIAL IM ONE ×2 (20:30→21:00)
[2022-11-01 20:37] LABS: ALANINE AMINOTRANSFERASE 15 U/L (12-78); ALBUMIN 1.6 g/dL (3.4-4.8); ASPARTATE AMINOTRANSFERASE 46 U/L (10-37); TOTAL PROTEIN, SERUM 7.6 g/dL (6.4-8.3)
[2022-11-01 20:50] LABS: GFR NON AFRICAN-AMERICAN 127 mL/min (>90)
[2022-11-01] MEDS ORDERED: LACTULOSE 20 GM/30 ML UDC PO ONE (21:45)
[2022-11-01] MEDS ORDERED: ACET325T PO (22:45)
[2022-11-01] MEDS ORDERED: ACET-2634 PO (22:46)
[2022-11-02 01:58] VITALS: BP_SYST 101; PULSE 71; RESP 18; TEMP 97.4
[2022-11-02 05:57] LABS: BASOPHILS % (AUTO) 0.7 % (0.0-2.0); EOSINOPHILS # (AUTO) 0.1 K/uL (0.0-0.4); EOSINOPHILS % (AUTO) 2.1 % (0.0-4.0); HEMATOCRIT 31.9 % (36-54); HEMOGLOBIN 10.5 g/dL (14.0-18.0); LYMPHOCYTES # (AUTO) 1.6 K/uL (1.0-5.5); LYMPHOCYTES % (AUTO) 31.4 % (20.5-51.5); MEAN CORPUSCULAR HEMOGLOBIN 31 pg (27-31); MEAN CORPUSCULAR HGB CONC 33 % (32-36); MEAN CORPUSCULAR VOLUME 94 fL (79.0-98.0); MONOCYTES # (AUTO) 0.5 K/uL (0.0-1.0); MONOCYTES % (AUTO) 10.8 % (1.7-9.3); NEUTROPHILS # (AUTO) 2.8 K/uL (1.8-7.7); PLATELET COUNT (AUTO) 142 K/uL (130-430); RED BLOOD CELL COUNT(AUTO) 3.38 MIL/uL (4.2-6.2); RED CELL DISTRIBUTION WIDTH 15.1 % (9.0-15.0); WHITE BLOOD COUNT (AUTO) 5.1 K/uL (4.8-10.8)
[2022-11-02 06:45] LABS: CALCIUM 7.8 mg/dL (8.4-11.0); CREATININE 0.71 mg/dL (0.55-1.30); POTASSIUM 3.9 mmol/L (3.5-5.1)
[2022-11-02 08:00] VITALS: BP_SYST 114; PULSE 70; RESP 20; TEMP 97.2; O2SAT 92
[2022-11-02 08:46] LABS: BILIRUBIN,URINE 1+ (NEGATIVE); BLOOD, URINE NEGATIVE (NEGATIVE); CLARITY/URINE CLEAR (CLEAR); GLUCOSE,URINE NEGATIVE (NEGATIVE); KETONES,URINE TRACE (NEGATIVE); LEUKOCYTE ESTERASE ,URINE NEGATIVE (NEGATIVE); NITRITE, URINE NEGATIVE (NEGATIVE); PH,URINE 5.5 (5.0-8.0); PROTEIN URINE NEGATIVE (NEGATIVE)
[2022-11-02 08:56] LABS: COLOR,URINE YELLOW (YELLOW)
[2022-11-02] MEDS: DOCUSATE SODIUM 100 MG CAPSULE PO SCH ×2 (09:00→20:17)
[2022-11-02] MEDS: LACTULOSE 20 GM/30 ML UDC PO SCH ×3 (09:16→20:18)
[2022-11-02] MEDS: FUROSEMIDE 20 MG TABLET PO SCH (09:17)
[2022-11-02] MEDS: PARoxetine HCL 20 MG TABLET PO SCH (09:17)
[2022-11-02] MEDS: FERROUS SULFATE 325 MG TABLET.DR PO SCH ×3 (09:18→20:18)
[2022-11-02] MEDS: PROPRANOLOL HCL 10 MG TABLET (INDERAL) PO SCH ×3 (09:18→20:19)
[2022-11-02 11:09] VITALS: BP_SYST 91; PULSE 70; RESP 16; TEMP 97.6; O2SAT 94
[2022-11-02 16:00] VITALS: BP_SYST 98; PULSE 70; RESP 18; TEMP 97; O2SAT 98
[2022-11-02 20:00] VITALS: BP_SYST 106; BP_SYST 124; PULSE 68; PULSE 71; RESP 18; TEMP 97.8; O2SAT 94; O2SAT 97
[2022-11-02] MEDS: QUEtiapine FUMARATE 100 MG TABLET PO SCH (20:18)
[2022-11-03] VITALS (8 sets, daily range): BP systolic 89–124; PULSE 59–78; RESP 12–17; TEMP 95.8–96.9; O2SAT 93–98
[2022-11-03] MEDS: PROPRANOLOL HCL 10 MG TABLET (INDERAL) PO SCH ×3 (08:58→22:23)
[2022-11-03] MEDS: FUROSEMIDE 20 MG TABLET PO SCH (08:59)
[2022-11-03] MEDS: PARoxetine HCL 20 MG TABLET PO SCH (08:59)
[2022-11-03] MEDS: LACTULOSE 20 GM/30 ML UDC PO SCH ×3 (09:00→22:23)
[2022-11-03] MEDS: DOCUSATE SODIUM 100 MG CAPSULE PO SCH ×2 (09:00→22:23)
[2022-11-03] MEDS: FERROUS SULFATE 325 MG TABLET.DR PO SCH ×3 (09:00→22:23)
[2022-11-03] MEDS: QUEtiapine FUMARATE 100 MG TABLET PO SCH (22:23)
[2022-11-04] VITALS (7 sets, daily range): BP systolic 78–118; PULSE 61–97; RESP 14–17; TEMP 96.2–97.1; O2SAT 95–98
[2022-11-04 08:11] LABS: BASOPHILS % (AUTO) 0.9 % (0.0-2.0); EOSINOPHILS # (AUTO) 0.1 K/uL (0.0-0.4); HEMATOCRIT 29.7 % (36-54); HEMOGLOBIN 9.9 g/dL (14.0-18.0); LYMPHOCYTES # (AUTO) 1.5 K/uL (1.0-5.5); LYMPHOCYTES % (AUTO) 40.4 % (20.5-51.5); MEAN CORPUSCULAR HEMOGLOBIN 31 pg (27-31); MEAN CORPUSCULAR HGB CONC 33 % (32-36); MEAN CORPUSCULAR VOLUME 94 fL (79.0-98.0); MONOCYTES # (AUTO) 0.6 K/uL (0.0-1.0); NEUTROPHILS # (AUTO) 1.5 K/uL (1.8-7.7); NEUTROPHILS % (AUTO) 39.7 % (40.0-70.0); PLATELET COUNT (AUTO) 117 K/uL (130-430); RED BLOOD CELL COUNT(AUTO) 3.16 MIL/uL (4.2-6.2); RED CELL DISTRIBUTION WIDTH 15.4 % (9.0-15.0); WHITE BLOOD COUNT (AUTO) 3.8 K/uL (4.8-10.8)
[2022-11-04 08:42] LABS: ALBUMIN 1.3 g/dL (3.4-4.8); CALCIUM 7.9 mg/dL (8.4-11.0); CREATININE 0.58 mg/dL (0.55-1.30); POTASSIUM 3.7 mmol/L (3.5-5.1); TOTAL PROTEIN, SERUM 6.8 g/dL (6.4-8.3)
[2022-11-04] MEDS: FUROSEMIDE 20 MG TABLET PO SCH (09:06)
[2022-11-04] MEDS: FERROUS SULFATE 325 MG TABLET.DR PO SCH (09:06)
[2022-11-04] MEDS: PARoxetine HCL 20 MG TABLET PO SCH (09:07)
[2022-11-04] MEDS: LACTULOSE 20 GM/30 ML UDC PO SCH (09:08)
[2022-11-04] MEDS: DOCUSATE SODIUM 100 MG CAPSULE PO SCH (09:08)
[2022-11-04] MEDS: PROPRANOLOL HCL 10 MG TABLET (INDERAL) PO SCH (09:08)
== END 2022-11-04 13:23 | DRG 280 ==
LOC: SED 17:15 → STU 22:41 → SMU 11-02 16:00
PROVIDERS: ADMIT General Practice; ATTEND General Practice
DX: K76.82 Hepatic encephalopathy (principal); K70.9 Alcoholic liver disease, unspecified; E43 Unspecified severe protein-calorie malnutrition; D63.8 Anemia in other chronic diseases classified elsewhere; E88.09 Other disorders of plasma-protein metabolism, not elsewhere classified; F29 Unspecified psychosis not due to a substance or known physiological condition; K74.60 Unspecified cirrhosis of liver; F39 Unspecified mood [affective] disorder; F32.A Depression, unspecified; Z20.822 Contact with and (suspected) exposure to COVID-19; F10.20 Alcohol dependence, uncomplicated; Y90.9 Presence of alcohol in blood, level not specified; Z68.1 Body mass index [BMI] 19.9 or less, adult
CPT/HCPCS: 36415; 70450-TC; 71045; 76376; 80048; 80053; 81003; 82140; 83880; 84484; 85025; 87081; 93005; 96360; 96372; 97110-GP; 97116-GP; 97163-GP; 97530-GP; 99285; G0378; J1630

== ENCOUNTER 2022-11-08 20:54 | Emergency (ER) | payer MEDICAID ==
[~2022-11-08] VITALS: Ht 157.5 cm; Wt 49.9 kg
[~2022-11-08 20:54] MED LIST changes: +ACET325T PO; -ACET325T53 PO; -SPIR50TA5 PO
[2022-11-08 21:01] VITALS: BP_SYST 85; PULSE 72; RESP 15; TEMP 97.9; O2SAT 14
[2022-11-08] MEDS ORDERED: NS 500 ML IV ONE (23:30)
[2022-11-08] MEDS ORDERED: THIAMINE HCL 100 MG/ML VIAL IM ONE (23:30)
[2022-11-08 23:50] LABS: BASOPHILS # (AUTO) 0.1 K/uL (0.0-0.2); BASOPHILS % (AUTO) 0.7 % (0.0-2.0); EOSINOPHILS # (AUTO) 0.1 K/uL (0.0-0.4); EOSINOPHILS % (AUTO) 0.8 % (0.0-4.0); HEMATOCRIT 31.3 % (36-54); HEMOGLOBIN 10.2 g/dL (14.0-18.0); LYMPHOCYTES # (AUTO) 2.1 K/uL (1.0-5.5); LYMPHOCYTES % (AUTO) 19.9 % (20.5-51.5); MEAN CORPUSCULAR HEMOGLOBIN 31 pg (27-31); MEAN CORPUSCULAR HGB CONC 33 % (32-36); MEAN CORPUSCULAR VOLUME 94 fL (79.0-98.0); MONOCYTES # (AUTO) 0.7 K/uL (0.0-1.0); MONOCYTES % (AUTO) 6.4 % (1.7-9.3); NEUTROPHILS # (AUTO) 7.7 K/uL (1.8-7.7); NEUTROPHILS % (AUTO) 72.2 % (40.0-70.0); PLATELET COUNT (AUTO) 150 K/uL (130-430); RED BLOOD CELL COUNT(AUTO) 3.35 MIL/uL (4.2-6.2); RED CELL DISTRIBUTION WIDTH 15.3 % (9.0-15.0); WHITE BLOOD COUNT (AUTO) 10.6 K/uL (4.8-10.8)
[2022-11-09] MEDS ORDERED: NS 500 ML IV ONE ×2 (00:15→03:15)
[2022-11-09 00:39] LABS: ALANINE AMINOTRANSFERASE 13 U/L (12-78); ALBUMIN 1.4 g/dL (3.4-4.8); ASPARTATE AMINOTRANSFERASE 40 U/L (10-37); CALCIUM 7.4 mg/dL (8.4-11.0); CREATININE 0.58 mg/dL (0.55-1.30); GFR AFRICAN AMERICAN 188 mL/min (>90); GLUCOSE 77 mg/dL (74-106); TOTAL BILIRUBIN 1.1 mg/dL (0.0-1.0); UREA NITROGEN, BLOOD 12 mg/dL (8-21)
[2022-11-09 00:55] LABS: ACETAMINOPHEN < 1 ug/mL (1-30); ALCOHOL, BLOOD < 3 mg/dL (<10); ANION GAP 6 (5-15); CHLORIDE 103 mmol/L (98-107)
[2022-11-09 03:48] LABS: BILIRUBIN,URINE 1+ (NEGATIVE); BLOOD, URINE NEGATIVE (NEGATIVE); CLARITY/URINE CLOUDY (CLEAR); COLOR,URINE BROWN (YELLOW); GLUCOSE,URINE NEGATIVE (NEGATIVE); KETONES,URINE TRACE (NEGATIVE); LEUKOCYTE ESTERASE ,URINE NEGATIVE (NEGATIVE); NITRITE, URINE NEGATIVE (NEGATIVE); PROTEIN URINE TRACE (NEGATIVE)
[2022-11-09 04:03] LABS: UROBILINOGEN,URINE >=8 (0.2-1.0)
[2022-11-09 04:15] LABS: BACTERIA,URINE FEW /HPF (None Seen); RBC,URINE 0-3 /HPF (0-3); WBC,URINE 0-3 /HPF (0-3)
[2022-11-09 12:39] VITALS: BP_SYST 135; PULSE 74; RESP 18; TEMP 97.3; O2SAT 98
== END 2022-11-09 12:43 | disposition home or self-care (01) ==
LOC: SED 20:54
DX: R33.9 Retention of urine, unspecified (principal); R41.0 Disorientation, unspecified; K70.30 Alcoholic cirrhosis of liver without ascites; Z79.899 Other long term (current) drug therapy
CPT/HCPCS: 99285; 80053; 82140; 85025; 36415; 81000; 96374; 70450; 76376; G0482; J7030 ×2; J3411; J7040; G0480

== ENCOUNTER 2022-11-15 19:57 | Emergency (ER) | payer MEDICAID ==
[2022-11-15 20:00] VITALS: BP_SYST 102; PULSE 78; RESP 24; TEMP 96.5; O2SAT 95
[2022-11-15] MEDS ORDERED: NACL 0.9% 1,000 ML IV ONE (21:00)
[2022-11-15 21:33] LABS: BASOPHILS # (AUTO) 0.1 K/uL (0.0-0.2); BASOPHILS % (AUTO) 0.8 % (0.0-2.0); EOSINOPHILS # (AUTO) 0.1 K/uL (0.0-0.4); EOSINOPHILS % (AUTO) 1.4 % (0.0-4.0); HEMATOCRIT 30.5 % (36-54); LYMPHOCYTES # (AUTO) 2.4 K/uL (1.0-5.5); LYMPHOCYTES % (AUTO) 28.8 % (20.5-51.5); MEAN CORPUSCULAR HEMOGLOBIN 30 pg (27-31); MEAN CORPUSCULAR HGB CONC 33 % (32-36); MEAN CORPUSCULAR VOLUME 92 fL (79.0-98.0); MONOCYTES # (AUTO) 0.7 K/uL (0.0-1.0); MONOCYTES % (AUTO) 8.5 % (1.7-9.3); NEUTROPHILS % (AUTO) 60.5 % (40.0-70.0); PLATELET COUNT (AUTO) 126 K/uL (130-430); RED BLOOD CELL COUNT(AUTO) 3.31 MIL/uL (4.2-6.2); RED CELL DISTRIBUTION WIDTH 15.5 % (9.0-15.0); WHITE BLOOD COUNT (AUTO) 8.3 K/uL (4.8-10.8)
[2022-11-15 21:49] LABS: INR 1.8 (0.80-1.20)
[2022-11-15 21:53] LABS: ALANINE AMINOTRANSFERASE 15 U/L (12-78); ALBUMIN 1.2 g/dL (3.4-4.8); ANION GAP 4 (5-15); ASPARTATE AMINOTRANSFERASE 51 U/L (10-37); CALCIUM 7.3 mg/dL (8.4-11.0); CARBON DIOXIDE 27 mmol/L (23-29); CHLORIDE 112 mmol/L (98-107); CREATININE 0.73 mg/dL (0.55-1.30); GFR AFRICAN AMERICAN 144 mL/min (>90); GFR NON AFRICAN-AMERICAN 119 mL/min (>90); GLUCOSE 100 mg/dL (74-106); POTASSIUM 3.6 mmol/L (3.5-5.1); SODIUM SERUM 143 mmol/L (136-145); TOTAL BILIRUBIN 1.1 mg/dL (0.0-1.0); TOTAL PROTEIN, SERUM 6.3 g/dL (6.4-8.3); UREA NITROGEN, BLOOD 19 mg/dL (8-21)
[2022-11-15 22:21] LABS: PROTHROMBIN TIME 18.5 SECS (9.5-12.5)
[2022-11-15 23:05] LABS: BILIRUBIN,URINE 2+ (NEGATIVE); BLOOD, URINE 3+ (NEGATIVE); CLARITY/URINE TURBID (CLEAR); COLOR,URINE BROWN (YELLOW); GLUCOSE,URINE TRACE (NEGATIVE); KETONES,URINE TRACE (NEGATIVE); LEUKOCYTE ESTERASE ,URINE 3+ (NEGATIVE); NITRITE, URINE POSITIVE (NEGATIVE); PH,URINE 8.5 (5.0-8.0); PROTEIN URINE 3+ (NEGATIVE)
[2022-11-15 23:33] LABS: BACTERIA,URINE MANY /HPF (None Seen); RBC,URINE >100 /HPF (0-3); WBC,URINE 20-50 /HPF (0-3)
[2022-11-15 23:35] LABS: MUCUS,URINE None Seen /LPF (None Seen); TRIPLE PHOSPHATE CRYSTAL,UR 30-50 /HPF (None Seen)
[2022-11-16] MEDS ORDERED: cefTRIAXone 1 GM IVPB PREMIX 50 ML IV ONE (01:00)
[2022-11-16 08:24] VITALS: BP_SYST 119; PULSE 81; RESP 16; TEMP 97.2; O2SAT 94
== END 2022-11-16 08:23 ==
LOC: SED 19:57
DX: R41.82 Altered mental status, unspecified (principal); G93.41 Metabolic encephalopathy; N39.0 Urinary tract infection, site not specified; Z79.899 Other long term (current) drug therapy
CPT/HCPCS: 99285; 71045; 96361; 80053; 81000; 82140; 85025; 85610; 85730; 87040; 87086; 84484; 36415; 93005; 83605; 96365; J7030; J0696

== ENCOUNTER 2022-11-17 07:42 | Inpatient (IN) | payer MEDICAID ==
[2022-11-17] VITALS (16 sets, daily range): BP systolic 93–132; PULSE 68–112; RESP 16–24; TEMP 97.7–102.2; O2SAT 92–100
[~2022-11-17] VITALS: Ht 162.6 cm; Wt 51.7 kg
[~2022-11-17 07:42] MED LIST changes: +ETOMIDATE 20 MG/ 10 ML VIAL (AMIDATE) ONE; +VECURONIUM BROMIDE 10 MG/VIAL (NORCURON) ONE
[2022-11-17] MEDS ORDERED: PIPERACILLIN/TAZO 4.5GM/DEX-IS 100 ML IV SCH (08:30)
[2022-11-17 08:43] LABS: BASOPHILS # (AUTO) 0.1 K/uL (0.0-0.2); BASOPHILS % (AUTO) 0.3 % (0.0-2.0); EOSINOPHILS % (AUTO) 0.1 % (0.0-4.0); HEMATOCRIT 32.4 % (36-54); HEMOGLOBIN 10.4 g/dL (14.0-18.0); LYMPHOCYTES # (AUTO) 1.8 K/uL (1.0-5.5); LYMPHOCYTES % (AUTO) 9.7 % (20.5-51.5); MEAN CORPUSCULAR HEMOGLOBIN 30 pg (27-31); MEAN CORPUSCULAR HGB CONC 32 % (32-36); MEAN CORPUSCULAR VOLUME 93 fL (79.0-98.0); MONOCYTES # (AUTO) 0.9 K/uL (0.0-1.0); MONOCYTES % (AUTO) 4.8 % (1.7-9.3); NEUTROPHILS # (AUTO) 15.7 K/uL (1.8-7.7); NEUTROPHILS % (AUTO) 85.1 % (40.0-70.0); PLATELET COUNT (AUTO) 157 K/uL (130-430); RED BLOOD CELL COUNT(AUTO) 3.49 MIL/uL (4.2-6.2); WHITE BLOOD COUNT (AUTO) 18.5 K/uL (4.8-10.8)
[2022-11-17] MEDS ORDERED: VANCOMYCIN HCL 750 MG in NS 250 ML IV ONE (08:45)
[2022-11-17 08:54] LABS: INR 1.8 (0.80-1.20); PROTHROMBIN TIME 18.4 SECS (9.5-12.5)
[2022-11-17 08:55] LABS: ALANINE AMINOTRANSFERASE 18 U/L (12-78); ALBUMIN 1.3 g/dL (3.4-4.8); ANION GAP 6 (5-15); ASPARTATE AMINOTRANSFERASE 61 U/L (10-37); CALCIUM 7.5 mg/dL (8.4-11.0); CARBON DIOXIDE 28 mmol/L (23-29); CHLORIDE 112 mmol/L (98-107); CREATININE 0.93 mg/dL (0.55-1.30); GFR AFRICAN AMERICAN 109 mL/min (>90); GFR NON AFRICAN-AMERICAN 90 mL/min (>90); GLUCOSE 109 mg/dL (74-106); POTASSIUM 3.9 mmol/L (3.5-5.1); SODIUM SERUM 146 mmol/L (136-145); TOTAL BILIRUBIN 1.6 mg/dL (0.0-1.0); UREA NITROGEN, BLOOD 27 mg/dL (8-21)
[2022-11-17] MEDS ORDERED: POTASSIUM CHLORIDE 20 MEQ TAB.PRT.SR PO PRN (09:00)
[2022-11-17] MEDS ORDERED: DOCUSATE SODIUM 100 MG CAPSULE PO PRN (09:00)
[2022-11-17] MEDS ORDERED: MORPHINE 2 MG/ML INJ. SYRINGE IVP PRN ×2 (09:00)
[2022-11-17] MEDS ORDERED: ONDANSETRON HCL 4 MG/2 ML VIAL IVP PRN (09:00)
[2022-11-17] MEDS ORDERED: LORazepam 2 MG/ML VIAL IVP PRN (09:00)
[2022-11-17] MEDS ORDERED: NACL 0.9% 1,000 ML IV ONE (09:00)
[2022-11-17] MEDS ORDERED: ZOLPIDEM TARTRATE 5 MG TABLET PO PRN (09:00)
[2022-11-17] MEDS ORDERED: MAGNESIUM SULFATE 50 ML IV PRN (09:00)
[2022-11-17] MEDS ORDERED: ACETAMINOPHEN 325 MG TABLET PO PRN ×2 (09:00→10:15)
[2022-11-17 09:10] LABS: ACETONE, SERUM NEGATIVE (NEGATIVE)
[2022-11-17 09:21] LABS: ABG O2 SAT% ESTIMATE 97.9 % (94.0-100.0); BLOOD GAS BASE EXCESS 0.6 mmol/L (-3.0-3.0); BLOOD GAS HCO3 24.7 mmol/L (21.0-27.0); BLOOD GAS PCO2 38.3 mmHg (32.0-45.0); BLOOD GAS PH 7.428 (7.350-7.450); BLOOD GAS PO2 103.1 mmHg (75.0-100.0)
[2022-11-17 09:25] LABS: ACETAMINOPHEN < 1 ug/mL (1-30); ALCOHOL, BLOOD < 3 mg/dL (<10); CREATINE KINASE, TOTAL 131 U/L (39-308); SALICYLATE < 1 mg/dL (3-30)
[2022-11-17 09:27] LABS: ALLEN'S TEST POSITIVE (P)
[2022-11-17] MEDS ORDERED: LACTULOSE 20 GM/30 ML UDC PO ONE (10:00)
[2022-11-17] MEDS ORDERED: fentaNYL CITRATE/PF 100 MCG/2 ML AMP IVP ONE (11:15)
[2022-11-17] MEDS ORDERED: PROPOFOL DRIP 100 ML IV ONE (11:15)
[2022-11-17 12:53] LABS: CLARITY/URINE CLOUDY (CLEAR); COLOR,URINE BROWN (YELLOW)
[2022-11-17 12:54] LABS: BILIRUBIN,URINE 2+ (NEGATIVE); BLOOD, URINE 3+ (NEGATIVE); GLUCOSE,URINE NEGATIVE (NEGATIVE); KETONES,URINE TRACE (NEGATIVE); LEUKOCYTE ESTERASE ,URINE NEGATIVE (NEGATIVE); NITRITE, URINE POSITIVE (NEGATIVE); PROTEIN URINE 2+ (NEGATIVE)
[2022-11-17 12:59] LABS: BARBITURATE, URINE NEGATIVE (NEG <=200); BENZODIAZEPINE, URINE POSITIVE (NEG <=150); CANNABINOID, URINE NEGATIVE (NEG <=50); COCAINE, URINE NEGATIVE (NEG <=150); METHAMPHETAMINES SCREEN,URINE NEGATIVE (NEG <=500); OPIATE, URINE NEGATIVE (NEG <=100); PHENCYCLIDINE SCREEN,URINE NEGATIVE (NEG <=25); UR TRICYCLIC ANTIDEPRESSANTS POSITIVE (NEG <=300); URINE AMPHETAMINE NEGATIVE (NEG <=500); URINE METHADONE NEGATIVE (NEG <=200); URINE OXYCODONE SCREEN NEGATIVE (NEG <=100); URINE PROPOXYPHENE SCREEN NEGATIVE (NEG <=300)
[2022-11-17 13:07] LABS: BACTERIA,URINE FEW /HPF (None Seen); MUCUS,URINE 1+ /LPF (None Seen); RBC,URINE >100 /HPF (0-3)
[2022-11-17] MEDS ORDERED: BACITRACIN 1 GM OINT TP ONE (15:32)
[2022-11-17] MEDS: IPRATROPIUM/ALBUTEROL SULFATE 3 ML AMPUL.NEB (DUONEB) INH SCH (18:00)
[2022-11-17] MEDS: PIPERACILLIN/TAZO 3.375/DEX-IS 50 ML IV SCH (18:07)
[2022-11-17] MEDS: VANCOMYCIN HCL 500 MG in NS 100 ML IV SCH (20:57)
[2022-11-17] MEDS: PROPOFOL DRIP 100 ML IV PRN (21:49)
[2022-11-17] MEDS: LACTULOSE 20 GM/30 ML UDC PO SCH (21:55)
[2022-11-18] VITALS (33 sets, daily range): BP systolic 114–150; PULSE 76–114; RESP 16–27; TEMP 97.1–99.2; O2SAT 94–100
[2022-11-18] MEDS: IPRATROPIUM/ALBUTEROL SULFATE 3 ML AMPUL.NEB (DUONEB) INH SCH ×4 (00:51→19:25)
[2022-11-18] MEDS: PIPERACILLIN/TAZO 3.375/DEX-IS 50 ML IV SCH ×4 (00:57→18:26)
[2022-11-18] MEDS: PROPOFOL DRIP 100 ML IV PRN ×2 (05:37→14:54)
[2022-11-18 06:14] LABS: BASOPHILS # (AUTO) 0.1 K/uL (0.0-0.2); BASOPHILS % (AUTO) 0.4 % (0.0-2.0); EOSINOPHILS # (AUTO) 0.4 K/uL (0.0-0.4); EOSINOPHILS % (AUTO) 2.5 % (0.0-4.0); HEMATOCRIT 26.1 % (36-54); HEMOGLOBIN 8.4 g/dL (14.0-18.0); LYMPHOCYTES # (AUTO) 1.3 K/uL (1.0-5.5); LYMPHOCYTES % (AUTO) 8.7 % (20.5-51.5); MEAN CORPUSCULAR HEMOGLOBIN 30 pg (27-31); MEAN CORPUSCULAR HGB CONC 32 % (32-36); MEAN CORPUSCULAR VOLUME 93 fL (79.0-98.0); MONOCYTES # (AUTO) 0.6 K/uL (0.0-1.0); MONOCYTES % (AUTO) 3.9 % (1.7-9.3); NEUTROPHILS # (AUTO) 12.4 K/uL (1.8-7.7); NEUTROPHILS % (AUTO) 84.5 % (40.0-70.0); PLATELET COUNT (AUTO) 108 K/uL (130-430); RED BLOOD CELL COUNT(AUTO) 2.81 MIL/uL (4.2-6.2); WHITE BLOOD COUNT (AUTO) 14.7 K/uL (4.8-10.8)
[2022-11-18 06:32] LABS: CALCIUM 7.2 mg/dL (8.4-11.0); CREATININE 0.73 mg/dL (0.55-1.30); POTASSIUM 3.2 mmol/L (3.5-5.1)
[2022-11-18] MEDS: PANTOPRAZOLE SODIUM 40 MG/VIAL (PROTONIX) IVP SCH (08:33)
[2022-11-18] MEDS: LACTULOSE 20 GM/30 ML UDC PO SCH ×2 (08:33→21:53)
[2022-11-18] MEDS: VANCOMYCIN HCL 500 MG in NS 100 ML IV SCH ×2 (08:33→21:55)
[2022-11-18 08:42] LABS: ABG O2 SAT% ESTIMATE 98.4 % (94.0-100.0); BLOOD GAS BASE EXCESS 0.1 mmol/L (-3.0-3.0); BLOOD GAS HCO3 23.3 mmol/L (21.0-27.0); BLOOD GAS PCO2 33.9 mmHg (32.0-45.0); BLOOD GAS PH 7.455 (7.350-7.450); BLOOD GAS PO2 114.4 mmHg (75.0-100.0)
[2022-11-19] VITALS (33 sets, daily range): BP systolic 118–166; PULSE 67–115; RESP 16–24; TEMP 97.6–100.1; O2SAT 96–100
[2022-11-19] MEDS: PIPERACILLIN/TAZO 3.375/DEX-IS 50 ML IV SCH ×4 (00:37→18:27)
[2022-11-19] MEDS: IPRATROPIUM/ALBUTEROL SULFATE 3 ML AMPUL.NEB (DUONEB) INH SCH ×4 (02:11→19:40)
[2022-11-19] MEDS: PROPOFOL DRIP 100 ML IV PRN (04:41)
[2022-11-19 06:24] LABS: BASOPHILS # (AUTO) 0.1 K/uL (0.0-0.2); BASOPHILS % (AUTO) 0.7 % (0.0-2.0); EOSINOPHILS # (AUTO) 0.3 K/uL (0.0-0.4); EOSINOPHILS % (AUTO) 1.8 % (0.0-4.0); HEMATOCRIT 26.8 % (36-54); HEMOGLOBIN 8.7 g/dL (14.0-18.0); LYMPHOCYTES # (AUTO) 2.8 K/uL (1.0-5.5); LYMPHOCYTES % (AUTO) 18.4 % (20.5-51.5); MEAN CORPUSCULAR HEMOGLOBIN 30 pg (27-31); MEAN CORPUSCULAR HGB CONC 33 % (32-36); MEAN CORPUSCULAR VOLUME 93 fL (79.0-98.0); MONOCYTES # (AUTO) 0.6 K/uL (0.0-1.0); MONOCYTES % (AUTO) 4.3 % (1.7-9.3); NEUTROPHILS # (AUTO) 11.2 K/uL (1.8-7.7); NEUTROPHILS % (AUTO) 74.8 % (40.0-70.0); PLATELET COUNT (AUTO) 114 K/uL (130-430); RED BLOOD CELL COUNT(AUTO) 2.87 MIL/uL (4.2-6.2); RED CELL DISTRIBUTION WIDTH 15.9 % (9.0-15.0)
[2022-11-19 06:49] LABS: CALCIUM 7.4 mg/dL (8.4-11.0); CREATININE 0.93 mg/dL (0.55-1.30); POTASSIUM 3.8 mmol/L (3.5-5.1)
[2022-11-19] MEDS ORDERED: MUPIROCIN 2% TOPICAL OINTMENT 22 GM NS ONE (11:15)
[2022-11-19] MEDS: PANTOPRAZOLE SODIUM 40 MG/VIAL (PROTONIX) IVP SCH (11:32)
[2022-11-19] MEDS: RIFAXIMIN 550 MG TABLET NG SCH ×2 (11:33→21:57)
[2022-11-19] MEDS: LACTULOSE 20 GM/30 ML UDC PO SCH ×2 (11:34→21:57)
[2022-11-19] MEDS: VANCOMYCIN HCL 1,250 MG in NS 250 ML IV SCH (11:35)
[2022-11-19] MEDS: D5W 1,000 ML IV SCH (18:27)
[2022-11-19] MEDS ORDERED: MUPIROCIN 1 GM OIN.PF.APP NS SCH (21:00)
[2022-11-19] MEDS: DESMOPRESSIN ACETATE 4 MCG/ML AMP IVP SCH (21:57)
[2022-11-19] MEDS: MUPIROCIN 2% TOPICAL OINTMENT 22 GM NS SCH (22:17)
[2022-11-20] VITALS (38 sets, daily range): BP systolic 121–143; PULSE 58–99; RESP 13–26; TEMP 97.1–98.2; O2SAT 93–100
[2022-11-20] MEDS: PIPERACILLIN/TAZO 3.375/DEX-IS 50 ML IV SCH ×3 (00:10→11:14)
[2022-11-20] MEDS: IPRATROPIUM/ALBUTEROL SULFATE 3 ML AMPUL.NEB (DUONEB) INH SCH ×4 (01:00→19:31)
[2022-11-20 04:41] LABS: PROTHROMBIN TIME 10.7 SECS (9.5-12.5)
[2022-11-20 05:28] LABS: BASOPHILS % (AUTO) 0.2 % (0.0-2.0); EOSINOPHILS # (AUTO) 0.3 K/uL (0.0-0.4); EOSINOPHILS % (AUTO) 3.3 % (0.0-4.0); HEMATOCRIT 24.4 % (36-54); LYMPHOCYTES # (AUTO) 1.1 K/uL (1.0-5.5); MEAN CORPUSCULAR HEMOGLOBIN 31 pg (27-31); MEAN CORPUSCULAR HGB CONC 33 % (32-36); MEAN CORPUSCULAR VOLUME 94 fL (79.0-98.0); MONOCYTES # (AUTO) 0.5 K/uL (0.0-1.0); MONOCYTES % (AUTO) 5.8 % (1.7-9.3); NEUTROPHILS # (AUTO) 6.3 K/uL (1.8-7.7); NEUTROPHILS % (AUTO) 76.7 % (40.0-70.0); PLATELET COUNT (AUTO) 84 K/uL (130-430); RED CELL DISTRIBUTION WIDTH 15.8 % (9.0-15.0); WHITE BLOOD COUNT (AUTO) 8.2 K/uL (4.8-10.8)
[2022-11-20 06:22] LABS: ALBUMIN 0.7 g/dL (3.4-4.8); BILIRUBIN,DIRECT 0.6 mg/dL (0.0-0.3); CALCIUM 7.2 mg/dL (8.4-11.0); CREATININE 0.77 mg/dL (0.55-1.30); POTASSIUM 3.9 mmol/L (3.5-5.1); TOTAL BILIRUBIN 1.1 mg/dL (0.0-1.0); TOTAL PROTEIN, SERUM 5.6 g/dL (6.4-8.3)
[2022-11-20] MEDS: PROPOFOL DRIP 100 ML IV PRN (06:58)
[2022-11-20] MEDS: DESMOPRESSIN ACETATE 4 MCG/ML AMP IVP SCH ×2 (11:04→21:51)
[2022-11-20] MEDS: PANTOPRAZOLE SODIUM 40 MG/VIAL (PROTONIX) IVP SCH (11:08)
[2022-11-20] MEDS: RIFAXIMIN 550 MG TABLET NG SCH ×2 (11:08→21:43)
[2022-11-20] MEDS: MUPIROCIN 2% TOPICAL OINTMENT 22 GM NS SCH ×2 (11:09→21:00)
[2022-11-20] MEDS: LACTULOSE 20 GM/30 ML UDC PO SCH ×4 (11:10→21:43)
[2022-11-20] MEDS: ASCORBIC ACID 500 MG TABLET PO SCH (11:10)
[2022-11-20] MEDS: D5W 1,000 ML IV SCH (11:11)
[2022-11-20] MEDS: VANCOMYCIN HCL 1,250 MG in NS 250 ML IV SCH (11:12)
[2022-11-21] VITALS (35 sets, daily range): BP systolic 85–147; PULSE 83–128; RESP 16–26; TEMP 97.4–98.6; O2SAT 93–99
[2022-11-21] MEDS: IPRATROPIUM/ALBUTEROL SULFATE 3 ML AMPUL.NEB (DUONEB) INH SCH ×2 (00:45→20:32)
[2022-11-21] MEDS: PROPOFOL DRIP 100 ML IV PRN (02:19)
[2022-11-21 04:59] LABS: BASOPHILS # (AUTO) 0.1 K/uL (0.0-0.2); EOSINOPHILS # (AUTO) 0.2 K/uL (0.0-0.4); EOSINOPHILS % (AUTO) 2.2 % (0.0-4.0); HEMATOCRIT 25.9 % (36-54); HEMOGLOBIN 8.4 g/dL (14.0-18.0); LYMPHOCYTES # (AUTO) 1.3 K/uL (1.0-5.5); LYMPHOCYTES % (AUTO) 14.4 % (20.5-51.5); MEAN CORPUSCULAR HEMOGLOBIN 30 pg (27-31); MEAN CORPUSCULAR HGB CONC 33 % (32-36); MEAN CORPUSCULAR VOLUME 93 fL (79.0-98.0); MONOCYTES # (AUTO) 0.5 K/uL (0.0-1.0); MONOCYTES % (AUTO) 5.2 % (1.7-9.3); NEUTROPHILS # (AUTO) 7.2 K/uL (1.8-7.7); NEUTROPHILS % (AUTO) 77.2 % (40.0-70.0); PLATELET COUNT (AUTO) 99 K/uL (130-430); RED BLOOD CELL COUNT(AUTO) 2.78 MIL/uL (4.2-6.2); RED CELL DISTRIBUTION WIDTH 15.7 % (9.0-15.0); WHITE BLOOD COUNT (AUTO) 9.3 K/uL (4.8-10.8)
[2022-11-21 05:16] LABS: CALCIUM 7.1 mg/dL (8.4-11.0); CREATININE 0.74 mg/dL (0.55-1.30); POTASSIUM 3.4 mmol/L (3.5-5.1)
[2022-11-21] MEDS: D5W 1,000 ML IV SCH ×2 (06:36→16:39)
[2022-11-21 07:07] LABS: HEPATITIS A AB, IgM Negative (Negative); HEPATITIS B CORE AB, IgM Negative (Negative); HEPATITIS B SURFACE AG Negative (Negative); HEPATITIS C VIRUS AB Non Reactive (Non Reactive)
[2022-11-21] MEDS: RIFAXIMIN 550 MG TABLET NG SCH ×2 (08:46→21:25)
[2022-11-21] MEDS: MUPIROCIN 2% TOPICAL OINTMENT 22 GM NS SCH ×2 (08:46→21:26)
[2022-11-21] MEDS: DESMOPRESSIN ACETATE 4 MCG/ML AMP IVP SCH (08:46)
[2022-11-21] MEDS: PANTOPRAZOLE SODIUM 40 MG/VIAL (PROTONIX) IVP SCH (08:46)
[2022-11-21] MEDS: ASCORBIC ACID 500 MG TABLET PO SCH (08:47)
[2022-11-21] MEDS: LACTULOSE 20 GM/30 ML UDC PO SCH ×4 (08:50→21:26)
[2022-11-21] MEDS: VANCOMYCIN HCL 1,250 MG in NS 250 ML IV SCH (11:07)
[2022-11-21] MEDS: POTASSIUM CHLORIDE 40 MEQ in NS 250 ML IV SCH ×2 (15:36→16:39)
[2022-11-22] VITALS (28 sets, daily range): BP systolic 80–116; PULSE 74–126; RESP 16–20; TEMP 97.1–98.2; O2SAT 95–100
[2022-11-22] MEDS: IPRATROPIUM/ALBUTEROL SULFATE 3 ML AMPUL.NEB (DUONEB) INH SCH ×3 (01:44→19:35)
[2022-11-22] MEDS: PROPOFOL DRIP 100 ML IV PRN (05:05)
[2022-11-22 05:25] LABS: BASOPHILS # (AUTO) 0.2 K/uL (0.0-0.2); BASOPHILS % (AUTO) 2.3 % (0.0-2.0); EOSINOPHILS # (AUTO) 0.1 K/uL (0.0-0.4); EOSINOPHILS % (AUTO) 2.2 % (0.0-4.0); HEMATOCRIT 23.4 % (36-54); HEMOGLOBIN 7.7 g/dL (14.0-18.0); LYMPHOCYTES # (AUTO) 1.6 K/uL (1.0-5.5); LYMPHOCYTES % (AUTO) 24.4 % (20.5-51.5); MEAN CORPUSCULAR HEMOGLOBIN 30 pg (27-31); MEAN CORPUSCULAR HGB CONC 33 % (32-36); MEAN CORPUSCULAR VOLUME 92 fL (79.0-98.0); MONOCYTES # (AUTO) 0.6 K/uL (0.0-1.0); MONOCYTES % (AUTO) 9.3 % (1.7-9.3); NEUTROPHILS % (AUTO) 61.8 % (40.0-70.0); PLATELET COUNT (AUTO) 105 K/uL (130-430); RED BLOOD CELL COUNT(AUTO) 2.55 MIL/uL (4.2-6.2); RED CELL DISTRIBUTION WIDTH 15.9 % (9.0-15.0); WHITE BLOOD COUNT (AUTO) 6.5 K/uL (4.8-10.8)
[2022-11-22 05:51] LABS: CREATININE 0.61 mg/dL (0.55-1.30)
[2022-11-22 05:57] LABS: CALCIUM 6.9 mg/dL (8.4-11.0)
[2022-11-22] MEDS: D5W 1,000 ML IV SCH ×2 (06:26→21:16)
[2022-11-22] MEDS: LACTULOSE 20 GM/30 ML UDC PO SCH ×4 (09:35→21:13)
[2022-11-22] MEDS: PANTOPRAZOLE SODIUM 40 MG/VIAL (PROTONIX) IVP SCH (09:36)
[2022-11-22] MEDS: RIFAXIMIN 550 MG TABLET NG SCH ×2 (09:36→21:13)
[2022-11-22] MEDS: ASCORBIC ACID 500 MG TABLET PO SCH (09:36)
[2022-11-22] MEDS: MUPIROCIN 2% TOPICAL OINTMENT 22 GM NS SCH ×2 (09:38→21:14)
[2022-11-22] MEDS: VANCOMYCIN HCL 1,250 MG in NS 250 ML IV SCH (09:40)
[2022-11-22] MEDS ORDERED: CALCIUM GLUCONATE 2 GM in NS 80 ML IV ONE (10:00)
[2022-11-22] MEDS: VANCOMYCIN HCL 750 MG in NS 250 ML IV SCH (21:13)
[2022-11-22] MEDS ORDERED: NACL 0.9% 1,000 ML IV ONE (21:30)
[2022-11-23] VITALS (34 sets, daily range): BP systolic 79–138; PULSE 53–117; RESP 16–31; TEMP 96.9–99.6; O2SAT 92–100
[2022-11-23] MEDS: IPRATROPIUM/ALBUTEROL SULFATE 3 ML AMPUL.NEB (DUONEB) INH SCH ×4 (00:59→19:39)
[2022-11-23] MEDS ORDERED: NOREPINEPHRINE 4 MG/4 ML VIAL IV ONE ×2 (01:32→07:03)
[2022-11-23 04:56] LABS: BASOPHILS # (AUTO) 0.2 K/uL (0.0-0.2); BASOPHILS % (AUTO) 2.8 % (0.0-2.0); EOSINOPHILS # (AUTO) 0.2 K/uL (0.0-0.4); EOSINOPHILS % (AUTO) 2.9 % (0.0-4.0); HEMATOCRIT 24.1 % (36-54); LYMPHOCYTES # (AUTO) 1.9 K/uL (1.0-5.5); LYMPHOCYTES % (AUTO) 25.4 % (20.5-51.5); MEAN CORPUSCULAR HEMOGLOBIN 31 pg (27-31); MEAN CORPUSCULAR HGB CONC 33 % (32-36); MEAN CORPUSCULAR VOLUME 92 fL (79.0-98.0); MONOCYTES # (AUTO) 0.8 K/uL (0.0-1.0); MONOCYTES % (AUTO) 11.1 % (1.7-9.3); NEUTROPHILS # (AUTO) 4.2 K/uL (1.8-7.7); NEUTROPHILS % (AUTO) 57.8 % (40.0-70.0); PLATELET COUNT (AUTO) 155 K/uL (130-430); RED BLOOD CELL COUNT(AUTO) 2.61 MIL/uL (4.2-6.2); RED CELL DISTRIBUTION WIDTH 16.4 % (9.0-15.0); WHITE BLOOD COUNT (AUTO) 7.3 K/uL (4.8-10.8)
[2022-11-23 05:09] LABS: CREATININE 0.46 mg/dL (0.55-1.30); PHOSPHORUS 1.9 mg/dL (2.7-4.5); POTASSIUM 3.8 mmol/L (3.5-5.1)
[2022-11-23 05:17] LABS: CALCIUM 6.9 mg/dL (8.4-11.0)
[2022-11-23 05:22] LABS: ERYTHROCYTE SEDIMENTATION RATE 87 MM/HR (0-15)
[2022-11-23] MEDS ORDERED: CALCIUM GLUCONATE 2 GM in NS 100 ML IV ONE (06:15)
[2022-11-23] MEDS: RIFAXIMIN 550 MG TABLET NG SCH ×2 (08:14→20:15)
[2022-11-23] MEDS: ASCORBIC ACID 500 MG TABLET PO SCH (08:15)
[2022-11-23] MEDS: LACTULOSE 20 GM/30 ML UDC PO SCH ×4 (08:15→20:15)
[2022-11-23] MEDS: PANTOPRAZOLE SODIUM 40 MG/VIAL (PROTONIX) IVP SCH (08:16)
[2022-11-23] MEDS: VANCOMYCIN HCL 750 MG in NS 250 ML IV SCH ×2 (08:16→20:15)
[2022-11-23] MEDS: MUPIROCIN 2% TOPICAL OINTMENT 22 GM NS SCH ×2 (08:17→20:16)
[2022-11-23] MEDS ORDERED: K PHOS 15 MM in NS 250 ML IV ONE (11:00)
[2022-11-23] MEDS ORDERED: FUROSEMIDE 20 MG/2 ML VIAL IVP ONE (14:00)
[2022-11-23] MEDS: D5W 1,000 ML IV SCH (14:30)
[2022-11-23] MEDS: NOREPINEPHRINE BITARTRATE 4 MG in NS 246 ML IV PRN (16:57)
[2022-11-24] VITALS (33 sets, daily range): BP systolic 80–125; PULSE 81–130; RESP 19–31; TEMP 96.8–99.2; O2SAT 95–98
[2022-11-24] MEDS: NOREPINEPHRINE BITARTRATE 4 MG in NS 246 ML IV PRN (03:58)
[2022-11-24] MEDS: D5W 1,000 ML IV SCH (05:02)
[2022-11-24 05:10] LABS: ERYTHROCYTE SEDIMENTATION RATE 90 MM/HR (0-15)
[2022-11-24 05:23] LABS: BASOPHILS # (AUTO) 0.2 K/uL (0.0-0.2); EOSINOPHILS # (AUTO) 0.2 K/uL (0.0-0.4); EOSINOPHILS % (AUTO) 2.4 % (0.0-4.0); HEMOGLOBIN 7.7 g/dL (14.0-18.0); LYMPHOCYTES # (AUTO) 2.6 K/uL (1.0-5.5); LYMPHOCYTES % (AUTO) 35.7 % (20.5-51.5); MEAN CORPUSCULAR HEMOGLOBIN 31 pg (27-31); MEAN CORPUSCULAR HGB CONC 33 % (32-36); MEAN CORPUSCULAR VOLUME 93 fL (79.0-98.0); MONOCYTES % (AUTO) 13.4 % (1.7-9.3); NEUTROPHILS # (AUTO) 3.4 K/uL (1.8-7.7); NEUTROPHILS % (AUTO) 45.5 % (40.0-70.0); PLATELET COUNT (AUTO) 199 K/uL (130-430); RED BLOOD CELL COUNT(AUTO) 2.48 MIL/uL (4.2-6.2); RED CELL DISTRIBUTION WIDTH 16.4 % (9.0-15.0); WHITE BLOOD COUNT (AUTO) 7.4 K/uL (4.8-10.8)
[2022-11-24 06:35] LABS: ALBUMIN 0.9 g/dL (3.4-4.8); CREATININE 0.55 mg/dL (0.55-1.30); PHOSPHORUS 3.4 mg/dL (2.7-4.5); POTASSIUM 3.8 mmol/L (3.5-5.1); TOTAL BILIRUBIN 0.7 mg/dL (0.0-1.0); TOTAL PROTEIN, SERUM 6.3 g/dL (6.4-8.3)
[2022-11-24 06:52] LABS: CALCIUM 6.9 mg/dL (8.4-11.0)
[2022-11-24] MEDS ORDERED: CALCIUM GLUCONATE 2 GM in NS 80 ML IV ONE (07:15)
[2022-11-24] MEDS: IPRATROPIUM/ALBUTEROL SULFATE 3 ML AMPUL.NEB (DUONEB) INH SCH ×4 (07:28→19:20)
[2022-11-24] MEDS: VANCOMYCIN HCL 750 MG in NS 250 ML IV SCH ×3 (08:40→23:58)
[2022-11-24] MEDS: RIFAXIMIN 550 MG TABLET NG SCH ×2 (09:24→20:37)
[2022-11-24] MEDS: ASCORBIC ACID 500 MG TABLET PO SCH (09:24)
[2022-11-24] MEDS: LACTULOSE 20 GM/30 ML UDC PO SCH ×4 (09:25→20:38)
[2022-11-24] MEDS: PANTOPRAZOLE SODIUM 40 MG/VIAL (PROTONIX) IVP SCH (09:25)
[2022-11-24] MEDS: MUPIROCIN 2% TOPICAL OINTMENT 22 GM NS SCH (09:25)
[2022-11-24] MEDS ORDERED: FUROSEMIDE 40 MG/4 ML VIAL IVP ONE (15:45)
[2022-11-25] VITALS (35 sets, daily range): BP systolic 89–108; PULSE 76–108; RESP 14–23; TEMP 96.6–98.2; O2SAT 95–100
[2022-11-25] MEDS: IPRATROPIUM/ALBUTEROL SULFATE 3 ML AMPUL.NEB (DUONEB) INH SCH ×5 (01:01→23:57)
[2022-11-25 05:52] LABS: BASOPHILS # (AUTO) 0.1 K/uL (0.0-0.2); BASOPHILS % (AUTO) 1.3 % (0.0-2.0); EOSINOPHILS # (AUTO) 0.2 K/uL (0.0-0.4); EOSINOPHILS % (AUTO) 3.1 % (0.0-4.0); HEMOGLOBIN 7.2 g/dL (14.0-18.0); LYMPHOCYTES % (AUTO) 31.3 % (20.5-51.5); MEAN CORPUSCULAR HEMOGLOBIN 31 pg (27-31); MEAN CORPUSCULAR HGB CONC 33 % (32-36); MEAN CORPUSCULAR VOLUME 93 fL (79.0-98.0); MONOCYTES # (AUTO) 0.9 K/uL (0.0-1.0); NEUTROPHILS # (AUTO) 3.3 K/uL (1.8-7.7); NEUTROPHILS % (AUTO) 50.3 % (40.0-70.0); PLATELET COUNT (AUTO) 214 K/uL (130-430); RED BLOOD CELL COUNT(AUTO) 2.34 MIL/uL (4.2-6.2); RED CELL DISTRIBUTION WIDTH 17.2 % (9.0-15.0); WHITE BLOOD COUNT (AUTO) 6.5 K/uL (4.8-10.8)
[2022-11-25 05:54] LABS: ERYTHROCYTE SEDIMENTATION RATE 71 MM/HR (0-15)
[2022-11-25 06:02] LABS: HEMATOCRIT 21.7 % (36-54)
[2022-11-25 06:03] LABS: CREATININE 0.56 mg/dL (0.55-1.30); POTASSIUM 3.5 mmol/L (3.5-5.1)
[2022-11-25 06:06] LABS: CALCIUM 6.9 mg/dL (8.4-11.0)
[2022-11-25] MEDS: NOREPINEPHRINE BITARTRATE 4 MG in NS 246 ML IV PRN (06:10)
[2022-11-25] MEDS: ASCORBIC ACID 500 MG TABLET PO SCH (08:25)
[2022-11-25] MEDS: RIFAXIMIN 550 MG TABLET NG SCH ×2 (08:25→21:57)
[2022-11-25] MEDS: VANCOMYCIN HCL 750 MG in NS 250 ML IV SCH ×2 (08:25→17:23)
[2022-11-25] MEDS: LACTULOSE 20 GM/30 ML UDC PO SCH ×4 (08:29→21:57)
[2022-11-25] MEDS: PANTOPRAZOLE SODIUM 40 MG/VIAL (PROTONIX) IVP SCH (08:30)
[2022-11-26] VITALS (34 sets, daily range): BP systolic 85–134; PULSE 57–98; RESP 16–23; TEMP 96.5–97.8; O2SAT 97–100
[2022-11-26] MEDS: VANCOMYCIN HCL 750 MG in NS 250 ML IV SCH ×2 (00:50→10:25)
[2022-11-26 06:07] LABS: BASOPHILS # (AUTO) 0.2 K/uL (0.0-0.2); BASOPHILS % (AUTO) 3.6 % (0.0-2.0); EOSINOPHILS # (AUTO) 0.2 K/uL (0.0-0.4); HEMATOCRIT 22.1 % (36-54); HEMOGLOBIN 7.3 g/dL (14.0-18.0); LYMPHOCYTES # (AUTO) 1.2 K/uL (1.0-5.5); LYMPHOCYTES % (AUTO) 27.3 % (20.5-51.5); MEAN CORPUSCULAR HEMOGLOBIN 31 pg (27-31); MEAN CORPUSCULAR HGB CONC 33 % (32-36); MEAN CORPUSCULAR VOLUME 94 fL (79.0-98.0); MONOCYTES # (AUTO) 0.7 K/uL (0.0-1.0); NEUTROPHILS # (AUTO) 2.2 K/uL (1.8-7.7); NEUTROPHILS % (AUTO) 50.1 % (40.0-70.0); PLATELET COUNT (AUTO) 229 K/uL (130-430); RED BLOOD CELL COUNT(AUTO) 2.35 MIL/uL (4.2-6.2); RED CELL DISTRIBUTION WIDTH 17.9 % (9.0-15.0); WHITE BLOOD COUNT (AUTO) 4.4 K/uL (4.8-10.8)
[2022-11-26 06:18] LABS: CREATININE 0.52 mg/dL (0.55-1.30); POTASSIUM 3.7 mmol/L (3.5-5.1); TOTAL BILIRUBIN 0.7 mg/dL (0.0-1.0); TOTAL PROTEIN, SERUM 6.6 g/dL (6.4-8.3)
[2022-11-26] MEDS: IPRATROPIUM/ALBUTEROL SULFATE 3 ML AMPUL.NEB (DUONEB) INH SCH ×3 (07:49→19:40)
[2022-11-26] MEDS: NOREPINEPHRINE BITARTRATE 4 MG in NS 246 ML IV PRN (07:51)
[2022-11-26] MEDS: ASCORBIC ACID 500 MG TABLET PO SCH (10:23)
[2022-11-26] MEDS: RIFAXIMIN 550 MG TABLET NG SCH ×2 (10:23→21:00)
[2022-11-26] MEDS: LACTULOSE 20 GM/30 ML UDC PO SCH ×4 (10:23→21:00)
[2022-11-26] MEDS: PANTOPRAZOLE SODIUM 40 MG/VIAL (PROTONIX) IVP SCH (10:23)
[2022-11-26 13:42] LABS: ABG O2 SAT% ESTIMATE 97.2 % (94.0-100.0); BLOOD GAS BASE EXCESS -2.9 mmol/L (-3.0-3.0); BLOOD GAS HCO3 20.2 mmol/L (21.0-27.0); BLOOD GAS PCO2 30.9 mmHg (32.0-45.0); BLOOD GAS PH 7.433 (7.350-7.450); BLOOD GAS PO2 89.6 mmHg (75.0-100.0)
[2022-11-26] MEDS ORDERED: ALBUMIN HUMAN 25% 100 ML IV ONE (13:45)
[2022-11-26 13:54] LABS: ALLEN'S TEST POSITIVE (P)
[2022-11-27] VITALS (35 sets, daily range): BP systolic 84–138; PULSE 57–99; RESP 15–22; TEMP 97–98.2; O2SAT 95–100
[2022-11-27] MEDS: IPRATROPIUM/ALBUTEROL SULFATE 3 ML AMPUL.NEB (DUONEB) INH SCH ×5 (01:40→23:05)
[2022-11-27 04:30] LABS: BASOPHILS # (AUTO) 0.1 K/uL (0.0-0.2); BASOPHILS % (AUTO) 2.8 % (0.0-2.0); EOSINOPHILS # (AUTO) 0.1 K/uL (0.0-0.4); EOSINOPHILS % (AUTO) 3.1 % (0.0-4.0); HEMOGLOBIN 7.3 g/dL (14.0-18.0); LYMPHOCYTES # (AUTO) 1.3 K/uL (1.0-5.5); LYMPHOCYTES % (AUTO) 30.2 % (20.5-51.5); MEAN CORPUSCULAR HEMOGLOBIN 31 pg (27-31); MEAN CORPUSCULAR HGB CONC 33 % (32-36); MEAN CORPUSCULAR VOLUME 93 fL (79.0-98.0); MONOCYTES # (AUTO) 0.6 K/uL (0.0-1.0); MONOCYTES % (AUTO) 13.1 % (1.7-9.3); NEUTROPHILS # (AUTO) 2.2 K/uL (1.8-7.7); NEUTROPHILS % (AUTO) 50.8 % (40.0-70.0); PLATELET COUNT (AUTO) 257 K/uL (130-430); RED BLOOD CELL COUNT(AUTO) 2.36 MIL/uL (4.2-6.2); RED CELL DISTRIBUTION WIDTH 18.6 % (9.0-15.0); WHITE BLOOD COUNT (AUTO) 4.3 K/uL (4.8-10.8)
[2022-11-27 05:06] LABS: ALBUMIN 1.3 g/dL (3.4-4.8); CALCIUM 7.4 mg/dL (8.4-11.0); CREATININE 0.4 mg/dL (0.55-1.30); POTASSIUM 3.8 mmol/L (3.5-5.1); TOTAL BILIRUBIN 0.8 mg/dL (0.0-1.0); TOTAL PROTEIN, SERUM 6.4 g/dL (6.4-8.3)
[2022-11-27] MEDS: PANTOPRAZOLE SODIUM 40 MG/VIAL (PROTONIX) IVP SCH (09:36)
[2022-11-27] MEDS: LACTULOSE 20 GM/30 ML UDC PO SCH ×4 (09:36→20:55)
[2022-11-27] MEDS: RIFAXIMIN 550 MG TABLET NG SCH ×2 (09:36→20:55)
[2022-11-27] MEDS: ASCORBIC ACID 500 MG TABLET PO SCH (09:36)
[2022-11-28] VITALS (36 sets, daily range): BP systolic 95–131; PULSE 56–125; RESP 13–25; TEMP 96.4–99; O2SAT 94–100
[2022-11-28 05:12] LABS: BASOPHILS # (AUTO) 0.1 K/uL (0.0-0.2); BASOPHILS % (AUTO) 1.8 % (0.0-2.0); EOSINOPHILS # (AUTO) 0.1 K/uL (0.0-0.4); EOSINOPHILS % (AUTO) 1.5 % (0.0-4.0); HEMATOCRIT 24.4 % (36-54); HEMOGLOBIN 8.1 g/dL (14.0-18.0); LYMPHOCYTES # (AUTO) 1.7 K/uL (1.0-5.5); LYMPHOCYTES % (AUTO) 26.5 % (20.5-51.5); MEAN CORPUSCULAR HEMOGLOBIN 31 pg (27-31); MEAN CORPUSCULAR HGB CONC 33 % (32-36); MEAN CORPUSCULAR VOLUME 93 fL (79.0-98.0); MONOCYTES # (AUTO) 0.8 K/uL (0.0-1.0); MONOCYTES % (AUTO) 12.5 % (1.7-9.3); NEUTROPHILS # (AUTO) 3.6 K/uL (1.8-7.7); NEUTROPHILS % (AUTO) 57.7 % (40.0-70.0); PLATELET COUNT (AUTO) 309 K/uL (130-430); RED BLOOD CELL COUNT(AUTO) 2.61 MIL/uL (4.2-6.2); RED CELL DISTRIBUTION WIDTH 19.9 % (9.0-15.0); WHITE BLOOD COUNT (AUTO) 6.3 K/uL (4.8-10.8)
[2022-11-28 05:24] LABS: CALCIUM 7.4 mg/dL (8.4-11.0); CREATININE 0.49 mg/dL (0.55-1.30)
[2022-11-28] MEDS: IPRATROPIUM/ALBUTEROL SULFATE 3 ML AMPUL.NEB (DUONEB) INH SCH ×4 (07:10→23:50)
[2022-11-28] MEDS: RIFAXIMIN 550 MG TABLET NG SCH ×2 (08:47→21:14)
[2022-11-28] MEDS: ASCORBIC ACID 500 MG TABLET PO SCH (08:47)
[2022-11-28] MEDS: LACTULOSE 20 GM/30 ML UDC PO SCH ×4 (08:47→21:14)
[2022-11-28] MEDS: PANTOPRAZOLE SODIUM 40 MG/VIAL (PROTONIX) IVP SCH (08:48)
[2022-11-29] VITALS (34 sets, daily range): BP systolic 98–127; PULSE 66–112; RESP 11–20; TEMP 97–98; O2SAT 97–100
[2022-11-29 05:47] LABS: BASOPHILS # (AUTO) 0.2 K/uL (0.0-0.2); BASOPHILS % (AUTO) 2.6 % (0.0-2.0); EOSINOPHILS # (AUTO) 0.1 K/uL (0.0-0.4); HEMATOCRIT 24.1 % (36-54); HEMOGLOBIN 7.9 g/dL (14.0-18.0); LYMPHOCYTES # (AUTO) 1.9 K/uL (1.0-5.5); LYMPHOCYTES % (AUTO) 31.9 % (20.5-51.5); MEAN CORPUSCULAR HEMOGLOBIN 31 pg (27-31); MEAN CORPUSCULAR HGB CONC 33 % (32-36); MEAN CORPUSCULAR VOLUME 94 fL (79.0-98.0); MONOCYTES # (AUTO) 0.7 K/uL (0.0-1.0); MONOCYTES % (AUTO) 11.8 % (1.7-9.3); NEUTROPHILS % (AUTO) 51.7 % (40.0-70.0); PLATELET COUNT (AUTO) 307 K/uL (130-430); RED BLOOD CELL COUNT(AUTO) 2.58 MIL/uL (4.2-6.2); RED CELL DISTRIBUTION WIDTH 20.1 % (9.0-15.0); WHITE BLOOD COUNT (AUTO) 5.8 K/uL (4.8-10.8)
[2022-11-29 05:58] LABS: CALCIUM 7.4 mg/dL (8.4-11.0); CREATININE 0.53 mg/dL (0.55-1.30); POTASSIUM 3.6 mmol/L (3.5-5.1)
[2022-11-29] MEDS: IPRATROPIUM/ALBUTEROL SULFATE 3 ML AMPUL.NEB (DUONEB) INH SCH ×2 (07:30→19:39)
[2022-11-29] MEDS: PANTOPRAZOLE SODIUM 40 MG/VIAL (PROTONIX) IVP SCH (08:33)
[2022-11-29] MEDS: LACTULOSE 20 GM/30 ML UDC PO SCH ×4 (08:34→21:00)
[2022-11-29] MEDS: ASCORBIC ACID 500 MG TABLET PO SCH (08:34)
[2022-11-29] MEDS: RIFAXIMIN 550 MG TABLET NG SCH ×2 (08:34→21:00)
[2022-11-29] MEDS: NOREPINEPHRINE BITARTRATE 4 MG in NS 246 ML IV PRN (18:06)
[2022-11-30] VITALS (28 sets, daily range): BP systolic 85–121; PULSE 57–100; RESP 10–20; TEMP 96.8–98.7; O2SAT 92–100
[2022-11-30] MEDS: IPRATROPIUM/ALBUTEROL SULFATE 3 ML AMPUL.NEB (DUONEB) INH SCH ×4 (00:01→19:46)
[2022-11-30 05:22] LABS: BASOPHILS # (AUTO) 0.1 K/uL (0.0-0.2); BASOPHILS % (AUTO) 2.6 % (0.0-2.0); EOSINOPHILS # (AUTO) 0.2 K/uL (0.0-0.4); LYMPHOCYTES # (AUTO) 1.9 K/uL (1.0-5.5); LYMPHOCYTES % (AUTO) 35.9 % (20.5-51.5); MEAN CORPUSCULAR HEMOGLOBIN 30 pg (27-31); MEAN CORPUSCULAR HGB CONC 32 % (32-36); MEAN CORPUSCULAR VOLUME 93 fL (79.0-98.0); MONOCYTES # (AUTO) 0.7 K/uL (0.0-1.0); MONOCYTES % (AUTO) 13.1 % (1.7-9.3); NEUTROPHILS # (AUTO) 2.4 K/uL (1.8-7.7); NEUTROPHILS % (AUTO) 45.4 % (40.0-70.0); PLATELET COUNT (AUTO) 291 K/uL (130-430); RED BLOOD CELL COUNT(AUTO) 2.27 MIL/uL (4.2-6.2); RED CELL DISTRIBUTION WIDTH 19.6 % (9.0-15.0); WHITE BLOOD COUNT (AUTO) 5.2 K/uL (4.8-10.8)
[2022-11-30 05:25] LABS: CALCIUM 7.3 mg/dL (8.4-11.0); CREATININE 0.43 mg/dL (0.55-1.30); POTASSIUM 3.6 mmol/L (3.5-5.1)
[2022-11-30 05:55] LABS: HEMATOCRIT 21.2 % (36-54); HEMOGLOBIN 6.8 g/dL (14.0-18.0)
[2022-11-30] MEDS: PANTOPRAZOLE SODIUM 40 MG/VIAL (PROTONIX) IVP SCH ×2 (08:20→09:43)
[2022-11-30] MEDS: LACTULOSE 20 GM/30 ML UDC PO SCH (09:42)
[2022-11-30] MEDS: ASCORBIC ACID 500 MG TABLET PO SCH (09:43)
[2022-11-30] MEDS: RIFAXIMIN 550 MG TABLET NG SCH (09:43)
[2022-11-30] MEDS ORDERED: MORPHINE SULFATE IN 0.9 % NACL 100 ML IV PRN (10:00)
[2022-12-01] VITALS (16 sets, daily range): BP systolic 100–133; PULSE 67–151; RESP 15–18; TEMP 97.1–98.9; O2SAT 86–97
[2022-12-01] MEDS: IPRATROPIUM/ALBUTEROL SULFATE 3 ML AMPUL.NEB (DUONEB) INH SCH ×5 (01:18→20:18)
[2022-12-01] MEDS: MORPHINE SULFATE IN 0.9 % NACL 100 ML IV PRN (12:06)
[2022-12-02] VITALS (11 sets, daily range): BP systolic 92–126; PULSE 117–141; RESP 10–19; TEMP 97.6–99.2; O2SAT 87–100
[2022-12-02] MEDS: IPRATROPIUM/ALBUTEROL SULFATE 3 ML AMPUL.NEB (DUONEB) INH SCH ×4 (01:13→20:01)
[2022-12-02] MEDS: MORPHINE SULFATE IN 0.9 % NACL 100 ML IV PRN (14:11)
[2022-12-03] VITALS (11 sets, daily range): BP systolic 64–129; PULSE 76–131; RESP 9–18; TEMP 97.3–98.3; O2SAT 86–99
[2022-12-03] MEDS: IPRATROPIUM/ALBUTEROL SULFATE 3 ML AMPUL.NEB (DUONEB) INH SCH ×4 (01:49→19:43)
[2022-12-03] MEDS: MORPHINE SULFATE IN 0.9 % NACL 100 ML IV PRN (09:40)
[2022-12-04 00:12] VITALS: BP_SYST 74; PULSE 120; RESP 17; TEMP 97.2; O2SAT 96
[2022-12-04] MEDS: MORPHINE SULFATE IN 0.9 % NACL 100 ML IV PRN (03:12)
[2022-12-04 04:45] VITALS: BP_SYST 58; PULSE 117; RESP 10; O2SAT 95
[2022-12-04] MEDS: IPRATROPIUM/ALBUTEROL SULFATE 3 ML AMPUL.NEB (DUONEB) INH SCH ×3 (06:00→11:38)
[2022-12-04 07:35] VITALS: O2SAT 96
[2022-12-04 11:30] VITALS: BP_SYST 48; PULSE 107; RESP 12; TEMP 97.9; O2SAT 90
== END 2022-12-04 11:04 | DRG 720 ==
LOC: SED 07:42 → SIC 09:10 → SMU 11-30 17:12
PROVIDERS: ADMIT General Practice; ATTEND General Practice
PROC: 5A1955Z Respiratory Ventilation, Greater than 96 Consecutive Hours (ICD-10-PCS; principal; 2022-11-17)
PROC: 02HV33Z Insertion of Infusion Device into Superior Vena Cava, Percutaneous Approach (ICD-10-PCS; 2022-11-17)
PROC: B548ZZA Ultrasonography of Superior Vena Cava, Guidance (ICD-10-PCS; 2022-11-17)
PROC: 0BH17EZ Insertion of Endotracheal Airway into Trachea, Via Natural or Artificial Opening (ICD-10-PCS; 2022-11-17)
DX: A41.9 Sepsis, unspecified organism (principal); J96.01 Acute respiratory failure with hypoxia; R65.21 Severe sepsis with septic shock; J69.0 Pneumonitis due to inhalation of food and vomit; K70.40 Alcoholic hepatic failure without coma; K76.82 Hepatic encephalopathy; E44.0 Moderate protein-calorie malnutrition; E83.39 Other disorders of phosphorus metabolism; D63.8 Anemia in other chronic diseases classified elsewhere; E88.09 Other disorders of plasma-protein metabolism, not elsewhere classified; E87.0 Hyperosmolality and hypernatremia; D69.59 Other secondary thrombocytopenia; E87.6 Hypokalemia; K70.31 Alcoholic cirrhosis of liver with ascites; E87.8 Other disorders of electrolyte and fluid balance, not elsewhere classified; D68.9 Coagulation defect, unspecified; E83.51 Hypocalcemia; I46.9 Cardiac arrest, cause unspecified; N39.0 Urinary tract infection, site not specified; E86.0 Dehydration; R13.10 Dysphagia, unspecified; E87.1 Hypo-osmolality and hyponatremia; N18.9 Chronic kidney disease, unspecified; F32.A Depression, unspecified; Z79.1 Long term (current) use of non-steroidal anti-inflammatories (NSAID); Z79.899 Other long term (current) drug therapy; Z22.322 Carrier or suspected carrier of Methicillin resistant Staphylococcus aureus; Z99.11 Dependence on respirator [ventilator] status; Z68.1 Body mass index [BMI] 19.9 or less, adult
CPT/HCPCS: 36415; 36600; 70450-TC; 71045; 74018; 76376; 76700-TC; 80048; 80053; 80074; 80076; 80202; 80307; 81000; 82009; 82140; 82550; 82803; 82962; 83037; 83605; 83735; 83880; 84100; 84484; 85025; 85610-TC; 85651-TC; 85730-TC; 86886; 86900; 86901; 87040; 87070-TC; 87081; 87086; 87101; 87205-TC; 92610-GN; 93005; 94002; 94003; 94640; 94760; 99291; A6209; C9113; G0480; G0481; G0482; J0610; J1940; J1956; J2060; J2270; J2405; J2543; J2597; J2704; J3010; J3370; J3475; J3480; J3490; J7030; J7040; J7050; J7060